=== PATIENT | female | born 1940 | race Caucasian/White ===

== ENCOUNTER 2017-10-13 13:52 | Emergency (ER) | payer MEDICARE, OTHER ==
[~2017-10-13] VITALS: Ht 157.5 cm; Wt 61.7 kg
[~2017-10-13 13:52] MED LIST: BALSALAZIDE DI750 MG PO; CARVEDILOL3.125 MG PO; COUMADIN5 MG PO; LASIX20 MG PO; LISINOPRIL2.5 MG PO; LOSARTAN POTASS25 MG PO; LOVENOX60 MG/0.6 SC; NORVASC5 MG PO; PANTOPRAZOLE SO40 MG PO; PAXIL20 MG PO; POTASSIUM CHLO20 ME1 PO; QUESTRAN PACKET4 GM PO; WARFARIN SODIUM5 MG PO
[2017-10-13] MEDS ORDERED: ONDANSETRON HCL 4 MG ORAL DISINTEGRATING TAB ONE (14:41)
[2017-10-13] MEDS ORDERED: ONDANSETRON HCL 4 MG ORAL DISINTEGRATING TAB PO ONE ×2 (14:45→17:30)
[2017-10-13 15:40] LABS: BASOPHILS % 0.2 % (0.0-1.0); HEMATOCRIT 37.7 % (34.2-44.1); HEMOGLOBIN 12.5 g/dL (12.0-16.0); LYMPHOCYTES # (AUTO) 0.7 (1.0-3.2); MEAN CORPUSCULAR HEMOGLOBIN 31.8 pg (28-32); MEAN CORPUSCULAR HGB CONC 33.2 g/dL (31-35); MEAN CORPUSCULAR VOLUME 95.9 fL (81-99); MONOCYTES % 0.6 % (4.4-11.3); NEUTROPHILS # (AUTO) 4.5 (2.1-6.9); NEUTROPHILS % 85.8 % (38.7-80.0); PLATELET COUNT 109 x10e3/uL (140-360); RED BLOOD COUNT 3.93 x10e6/uL (3.6-5.1); RED CELL DISTRIBUTION WIDTH 15.4 % (11.7-14.4)
--- NOTE | 2017-10-13 15:43 | Diagnostic Imaging Report ---
PROCEDURE: X-RAY LUMBAR SPINE, TWO VIEWS COMPARISON: Lumbar spine radiographs 06/02/2016 INDICATIONS: LOWER BACK PAIN FINDINGS: AP, lateral, and spot lateral radiographs of the lumbar spine. Five non-rib bearing lumbar vertebral bodies are identified. The bones are demineralized. New vertebroplasty cement within T11 and L2 compared to 06/02/2016. Vertebroplasty cement again seen within L3. Multilevel degenerative changes include disc space narrowing, subchondral sclerosis, and marginal osteophyte formation. Stable T12 vertebral body mild superior endplate compression. No spondylolisthesis. IVC filter and multiple vascular stents overlie the right abdomen suggesting venous stents within the IVC and common iliac veins. Stable stent overlies the expected left common iliac artery. Cholecystectomy clips. CONCLUSION: No acute abnormality. Vertebroplasty of T11, L2, and L3. Demineralization and degenerative changes. Dictated by: Lamberto Villanueva M.D. on 10/13/2017 at 15:44 Electronically approved by: Lamberto Villanueva M.D. on 10/13/2017 at 15:44
[2017-10-13 16:01] LABS: ALBUMIN 3.5 g/dL (3.5-5.0); ALBUMIN/GLOBULIN RATIO 0.9 (0.8-2.0); ANION GAP 15.1 mmol/L (8-16); CALCIUM 10.3 mg/dL (8.4-10.2); CREATININE, SERUM 1.06 mg/dL (0.57-1.11); POTASSIUM 4.1 mmol/L (3.5-5.1)
--- NOTE | 2017-10-13 17:07 | Diagnostic Imaging Report ---
History: 77-year-old female with back pain after epidural steroid injection earlier today. Comparison studies: CT pelvis, 04/07/2016 Technique: Sagittal T1, T2 and IR, coronal T2, axial T2 with and without fat sat and axial spin density oblique Intravenous contrast: None Findings: Number of lumbar vertebral bodies: 5 . Soft tissues: Extensive metallic susceptibility artifact seen in the prevertebral soft tissues, particularly at the level of L3, presumably due to vascular stents. Paraspinal muscles: Moderate diffuse fatty atrophy from level L4-S1 . Lower thoracic cord: Anterior displacement of the lower thoracic spinal cord is seen from T10-T11 to T12-L1, with dorsal effacement is seen at the T11 level. There is suggestion of a dorsal extra-axial, possible subdural collection measuring approximately 5.1 x 0.7 x 1.3 cm (series 2 image 9) which is isointense to the spinal cord on T1 and mildly hyperintense on T2. It is not the same intensity as fat or CSF. There is questionable tethering from the dorsal aspect of the cord to the posterior dura (series 2 image 8). The tip of the conus is at L1. Cauda equina:No masses. No arachnoiditis . Vertebrae: Multiple chronic compression fractures seen throughout the lumbar spine, with associated vertebroplasty changes at T11, L2, and L3. Chronic superior endplate compression deformity at T12, with approximate 20% loss of height. Degenerative changes: L1-L2 Symmetric disc bulge causes mild canal stenosis and severe right foraminal stenosis. L2-L3: Mildly degenerated disc Symmetric disc bulge and facet arthropathy cause mild canal stenosis without significant foraminal stenosis. L3-L4: Moderately degenerated disc. Symmetric disc bulge and facet arthropathy cause mild canal stenosis. Mild left foraminal stenosis. L4-L5: Moderately degenerated disc Disc bulge asymmetric to the right and facet arthropathy and ligamentum flavum buckling cause mild canal stenosis. Moderate right and mild left foraminal stenosis. L5-S1: Moderately degenerated disc. Symmetric disc bulge without canal stenosis. Mild bilateral foraminal stenosis. Partially visualized sacrum: No significant abnormality . IMPRESSION: Exam is limited by artifact from vascular stents. 1. 5 cm dorsal extra-axial, possible subdural collection causing anterior displacement of the lower thoracic cord from T10-T11 through T12-L1. This is nonspecific, and may represent a hematoma, abscess, arachnoid cyst, or possibly iatrogenic fluid. No spinal cord signal changes. Further evaluation with MRI with contrast may be performed, as clinically indicated. 2. Multiple chronic compression fractures status post vertebral plasty at T11, L2 and L3. Chronic superior endplate compression deformity at T12, with approximate 20% loss of height. No acute compression fractures identified. 3. Suboptimal evaluation due to metallic susceptibility artifact. 4. Lumbar spondylosis as detailed above. Findings discussed with nurse practitioner Jaycee at 5:00 PM 10/13/2017 via telephone. A preliminary report was given by Neuroradiology fellow Dr. Kelly at 5:06 PM on 10/13/2017. I have reviewed the study and agree with the findings in the preliminary report. Signed by: Dr. Annabel Hubbard M.D. on 10/13/2017 10:16 PM
[2017-10-13] MEDS ORDERED: MORPHINE SULFATE 2 MG/ML SYR IV STA (17:23)
[2017-10-13] MEDS ORDERED: PHYTONADIONE 10 MG/ML AMP PO ONE (17:30)
[2017-10-13 18:00] LABS: INR 1.06
[2017-10-13 18:01] LABS: PARTIAL THROMBOPLASTIN TIME 27.3 seconds (23.8-35.5)
[2017-10-13 18:45] LABS: BILIRUBIN,URINE NEGATIVE (NEGATIVE); CLARITY,URINE CLEAR (CLEAR); COLOR,URINE YELLOW (YELLOW); KETONES,URINE TRACE (NEGATIVE); LEUKOCYTE ESTERASE ,URINE NEGATIVE (NEGATIVE); NITRITE,URINE NEGATIVE (NEGATIVE); PROTEIN,URINE DIPSTICK 1+ (NEGATIVE); URINE UROBILINOGEN 0.2 mg/dL (0.2 - 1)
[2017-10-13] MEDS ORDERED: CLONIDINE HCL 0.2 MG TAB PO ONE (18:45)
[2017-10-13 18:59] LABS: WBC,URINE (MAN) 0-5 /HPF (0-5)
[2017-10-13 19:00] LABS: BACTERIA,URINE RARE /HPF; EPITHELIAL CELLS,URINE RARE /LPF; MUCUS,URINE FEW (RARE)
== END 2017-10-13 21:08 | disposition other institution (70) ==
LOC: ER 14:54
DX: S24.133A Anterior cord syndrome at T7-T10 level of thoracic spinal cord, initial encounter (principal); R11.0 Nausea; I10 Essential (primary) hypertension; I25.10 Atherosclerotic heart disease of native coronary artery without angina pectoris; F32.9 Major depressive disorder, single episode, unspecified; I25.2 Old myocardial infarction; Z85.3 Personal history of malignant neoplasm of breast; Z86.718 Personal history of other venous thrombosis and embolism
CPT/HCPCS: 36415; 51700; 72100; 72148; 80053; 81001; 85025; 85610; 85730; 99285; J2270; J3430

== ENCOUNTER → 2017-10-30 | Outpatient (CLI) | payer MEDICARE ==
--- NOTE | 2017-10-31 09:45 | Diagnostic Imaging Report ---
History: Low back pain Comparison studies: MRI of the lumbar spine 10/13/2017 Technique: Sagittal T1, T2 and IR, coronal T2, axial T2 with and without fat sat and axial spin density oblique Intravenous contrast: None Findings: Number of lumbar vertebral bodies: 5 . Soft tissues: Again seen metallic susceptibility artifact seen in the prevertebral soft disc secondary to to vascular stents. Straightening and mild reversal of the lumbar lordosis centered at L2. Mild grade 1 anterolisthesis of L1 over L2. Paraspinal muscles: Moderate to severe diffuse fatty atrophy from level L4-S1 . Lower thoracic cord: Significantly decrease in size of the posterior epidural fluid collection at the lower thoracic spine spanning from T11 made level through L1 superior endplate with improved mass effect over the thecal sac, moderate at T11-T12. The conus ends at L1-L2 Cauda equina:No masses. No arachnoiditis . Vertebrae: Multiple chronic compression fractures seen throughout the lumbar spine, with associated vertebroplasty changes at T11, L2, and L3, unchanged. Chronic superior endplate compression deformity at T12, with approximate 20% loss of height, unchanged. Modic type I changes at L1-L2, unchanged Degenerative changes: L1-L2 Symmetric disc bulge causes mild canal stenosis and severe right foraminal stenosis, stable. L2-L3: Mildly degenerated disc Symmetric disc bulge and facet arthropathy cause mild canal stenosis without significant foraminal stenosis, stable. L3-L4: Moderately degenerated disc. Symmetric disc bulge and facet arthropathy cause mild canal stenosis. Mild left foraminal stenosis, stable. L4-L5: Moderately degenerated disc Disc bulge asymmetric to the right and facet arthropathy and ligamentum flavum buckling cause mild canal stenosis. Mild bilateral foraminal stenosis, stable. L5-S1: Moderately degenerated disc. Symmetric disc bulge without canal stenosis. Severe right and moderate left foraminal narrowing, stable. Partially visualized sacrum: No significant abnormality . IMPRESSION: 1. Decrease in size dorsal posterior heterogeneous epidural fluid collection T11 through L1 with improved thecal sac compression, moderate at T11-12, most consistent with evolving hematoma. 2. Stable multiple, chronic compression fractures with vertebroplasty changes. No acute compression fractures identified. 3. Stable degenerative changes of the lumbar spine as described above. Signed by: DR Willie Virgen M.D. on 10/31/2017 9:41 AM
== END ==
LOC: MRI 13:42
PROVIDERS: ATTEND Physical Medicine & Rehabilitation
DX: M54.5 Low back pain (principal); X58.XXXA Exposure to other specified factors, initial encounter
CPT/HCPCS: 72148

== ENCOUNTER → 2017-12-06 | Outpatient (CLI) | payer MEDICARE ==
--- NOTE | 2017-12-06 19:11 | Diagnostic Imaging Report ---
PROCEDURE:THORACIC SP 3V COMPARISON:Chest radiograph 12/14/2016 INDICATIONS:PAIN IN BACK FINDINGS: Osseous demineralization. Lower cervical fusion hardware without evidence of hardware fracture or loosening. Vertebroplasty changes of likely T11 and L2. Stable mild compression deformities of T9 and T12. Mild multilevel degenerative changes throughout the thoracic spine. Partially visualized metallic stent in the right upper quadrant. Surgical clips in the right upper quadrant. Visualized lungs and cardiomediastinal silhouette are unremarkable. CONCLUSION: No acute osseous abnormalities. Stable multiple vertebroplasties and compression deformities compared to 12/14/2016. Dictated by: Lamberto Villanueva M.D. on 12/06/2017 at 19:15 Electronically approved by: Lamberto Villanueva M.D. on 12/06/2017 at 19:15
== END ==
LOC: RAD 18:02 → EDSTATUS 12-15 16:45
PROVIDERS: ATTEND Internal Medicine Cardiovascular Disease
DX: M54.6 Pain in thoracic spine (principal)
CPT/HCPCS: 72072

== ENCOUNTER 2019-03-12 15:01 | Inpatient (IN) | payer MEDICARE, OTHER ==
[~2019-03-12] VITALS: Ht 154.9 cm; Wt 66.8 kg
--- OUTSIDE RECORDS SUMMARY | 2019-03-12 15:53 | XMS REPORT ---
[facility] Address Unknown Phone Unavailable Care Team Providers Care Production Assembler Name Role Phone HUGO WHEELER Unavailable Unavailable AMANDA CEBALLOS Unavailable Unavailable LESLYE CHANDLER Unavailable Unavailable MONROE MCPHERSON Unavailable Unavailable Payers Payer Name Policy Type Policy Number Effective Date Expiration Date Problems This patient has no known problems. Allergies, Adverse Reactions, Alerts Allergy Name Allergy Type Status Severity Reaction(s) Onset Date Inactive Date Treating Clinician Comments prochlorperazine edisylate DA Active 2017-06-02 00:00:00 prochlorperazine maleate DA Active 2017-06-02 00:00:00 iodine DA Active 2017-06-02 00:00:00 prochlorperazine DA Active MA 2017-06-02 00:00:00 amoxicillin DA Active MA 2017-06-02 00:00:00 INTERNAL IODINE DA Active MA 2013-01-11 00:00:00 Medications This patient has no known medications. Results Test Description Test Time Test Comments Text Results Atomic Results Result Comments PROTHROMBIN TIME 2019-01-15 13:24:00 PROTHROMBIN TIME PATIENT (test code=PTP) 18.8 seconds 9.0-14.0 INTERNATIONAL NORMAL RATIO (test code=INR) 1.6 0.8-1.2 The therapeutic range for oral anticoagulant therapy formost indications is an international normalized ratio (INR)of between 2.0 and 3.0. The recommended therapeutic INRrange for various clinical situations is listed below: Clinical Situation INR range Pulmonary e mbolism treatment (2.0-3.0)Venous thrombosis treatmentVenous thrombosis prophylaxis (high risk surgery)Prevention of systemic embolism from: Acute myocardial infarction Valvular heart disease Atrial fibrillation Mechanical prosthetic heart valves (2.5-3.5) PROTHROMBIN [id number] 14:24:00* Test Item Value Reference Range Comments PROTHROMBIN TIME PATIENT (test code=PTP) 16.9 seconds 9.0-14.0 INTERNATIONAL NORMAL RATIO (test code=INR) 1.4 0.8-1.2 The therapeutic range for oral anticoagulant therapy formost indications is an international normalized ratio (INR)of between 2.0 and 3.0. The recommended therapeutic INRrange for various clinical situations is listed below: Clinical Situation INR range Pulmonary e mbolism treatment (2.0-3.0)Venous thrombosis treatmentVenous thrombosis prophylaxis (high risk surgery)Prevention of systemic embolism from: Acute myocardial infarction Valvular heart disease Atrial fibrillation Mechanical prosthetic heart valves (2.5-3.5) PROTHROMBIN [id number] 13:40:00* Test Item Value Reference Range Comments PROTHROMBIN TIME PATIENT (test code=PTP) 43.1 seconds 9.0-14.0 INTERNATIONAL NORMAL RATIO (test code=INR) 3.7 0.8-1.2 The therapeutic range for oral anticoagulant therapy formost indications is an international normalized ratio (INR)of between 2.0 and 3.0. The recommended therapeutic INRrange for various clinical situations is listed below: Clinical Situation INR range Pulmonary e mbolism treatment (2.0-3.0)Venous thrombosis treatmentVenous thrombosis prophylaxis (high risk surgery)Prevention of systemic embolism from: Acute myocardial infarction Valvular heart disease Atrial fibrillation Mechanical prosthetic heart valves (2.5-3.5) URINALYSIS [id number] 23:56:00* Test Item Value Reference Range Comments UA COLOR (test code=COLU) LIGHT YELLOW YELLOW UA APPEARANCE (test code=APPU) CLEAR CLEAR UA GLUCOSE DIPSTICK (test code=DGLUU) NEGATIVE mg/dL NEGATIVE UA BILIRUBIN DIPSTICK (test code=BILU) NEGATIVE mg/dL NEGATIVE UA KETONE DIPSTICK (test code=KETU) Negative mg/dL NEGATIVE UA SPECIFIC GRAVITY (test code=SGU) 1.010 1.001-1.035 UA BLOOD DIPSTICK (test code=URSULA) Negative NEGATIVE UA PH DIPSTICK (test code=STACY) 6.0 5.0-8.0 UA PROTEIN DIPSTICK (test code=PROU) Negative mg/dL NEGATIVE UA UROBILINIOGEN DIPSTICK (test code=URO) NEGATIVE mg/dL NEGATIVE UA NITRITE DIPSTICK (test code=DORETHA) NEGATIVE NEGATIVE UA LEUKOCYTE ESTERASE W REFLEX (test code=LEUUR) TRACE NEGATIVE UA WBC (test code=WBCU) 0-5 #/HPF 0-5 UA RBC (test code=RBCU) 0-2 #/HPF 0-5 UA EPITHELIAL CELLS (test code=EPIU) FEW per HPF FEW UA MUCUS (test code=MUCU) FEW #/LPF FEW Urine Source? Clean CatchURINALYSIS [id number] 23:44:00* Test Item Value Reference Range Comments UA COLOR (test code=COLU) LIGHT YELLOW YELLOW UA APPEARANCE (test code=APPU) CLEAR CLEAR UA GLUCOSE DIPSTICK (test code=DGLUU) NEGATIVE mg/dL NEGATIVE UA BILIRUBIN DIPSTICK (test code=BILU) NEGATIVE mg/dL NEGATIVE UA KETONE DIPSTICK (test code=KETU) Negative mg/dL NEGATIVE UA SPECIFIC GRAVITY (test code=SGU) 1.010 1.001-1.035 UA BLOOD DIPSTICK (test code=URSULA) Negative NEGATIVE UA PH DIPSTICK (test code=STACY) 6.0 5.0-8.0 UA PROTEIN DIPSTICK (test code=PROU) Negative mg/dL NEGATIVE UA UROBILINIOGEN DIPSTICK (test code=URO) NEGATIVE mg/dL NEGATIVE UA NITRITE DIPSTICK (test code=DORETHA) NEGATIVE NEGATIVE UA LEUKOCYTE ESTERASE W REFLEX (test code=LEUUR) NEGATIVE UA WBC (test code=WBCU) per HPF 0-5 Urine Source? Clean CatchPROCALCITONIN (PCT)2018-08-29 23:04:00* Test Item Value Reference Range Comments PROCALCITONIN (PCT) (test code=PROCAL) < 0.05 ng/ml Concentration Interpretation (ng/mL) <0.51 Sepsis is not likely. Local bacterial infection is possible. (LOW RISK for progression to Sepsis) 0.51 - 2.00 Sepsis is possible, but other conditions are known to elevate PCT as well. (MODERATE RISK for progression to Sepsis) > 2.00 Sepsis is likely, unless other causes are known. (HIGH RISK for progression to Severe Sepsis or Septic Shock) 10.00 High likelihood of Severe Sepsis or Septic or higher Shock. *Increased PCT levels may not always be related to systemic bacterial infection.*Low PCT levels do not automatically exclude the presence of bacterial infection.*All results should be interpreted taking into account the patients history. B-TYPE NATRIURETIC [id number] 22:56:00* Test Item Value Reference Range Comments B-TYPE NATRIURETIC PEPTIDE (test code=BNP) 189.70 pgram/mL 0-100 LACTIC [id number] 22:42:00* Test Item Value Reference Range Comments LACTIC ACID (test code=LACT) 0.8 mmol/L 0.4-1.9 BASIC METABOLIC [id number] 22:42:00* Test Item Value Reference Range Comments SODIUM (test code=NA) 140 mmol/L 136-145 POTASSIUM (test code=K) 3.8 mmol/L 3.5-5.1 CHLORIDE (test code=CL) 108.0 mmol/L 98-107 CARBON DIOXIDE (test code=CO2) 25.0 mmol/L 21-32 ANION GAP (test code=GAP) 10.8 10-20 GLUCOSE (test code=GLU) 109 mg/dL 74-106 BLOOD UREA NITROGEN (test code=BUN) 14 mg/dL 7-18 GLOMERULAR FILTRATION RATE (test code=GFR) 60 mL/min >=60 Estimated GFR by using Modified MDRD formula.Chronic kidney disease is defined as either kidney damageor GFR <60 mL/min/1.73 m2 for >3 months. CREATININE (test code=CREAT) 0.90 mg/dL 0.55-1.02 Note change in reference range due to change in reagent. BUN/CREATININE RATIO (test code=BUN/CREA) 15.6 10-20 CALCIUM (test code=CA) 9.1 mg/dL 8.5-10.1 HEPATIC FUNCTION [id number] 22:42:00* Test Item Value Reference Range Comments TOTAL PROTEIN (test code=PROT) 6.7 gram/dL 6.4-8.2 ALBUMIN (test code=ALB) 3.2 g/dL 3.4-5.0 GLOBULIN (test code=GLOB) 3.5 gram/dL 2.7-4.2 ALBUMIN/GLOBULIN RATIO (test code=A/G) 0.9 0.75-1.50 BILIRUBIN TOTAL (test code=BILT) 0.60 mg/dL 0.0-1.0 BILIRUBIN DIRECT (test code=BILD) 0.13 mg/dL 0.0-0.20 SGOT/AST (test code=AST) 47 IUnit/L 15-37 SGPT/ALT (test code=ALT) 29 IUnit/L 12-78 ALKALINE PHOSPHATASE TOTAL (test code=ALKP) 59 IUnit/L 45-117 Note change in reference range due to change in reagent. [id number] 22:42:00* Test Item Value Reference Range Comments LIPASE (test code=LIP) 113 U/L 73.0-393.0 [id number] 22:42:00* Test Item Value Reference Range Comments TROPONIN-I (test code=TROPI) <0.015 ng/mL 0-0.045 BASIC METABOLIC [id number] 22:32:00* Test Item Value Reference Range Comments SODIUM (test code=NA) 140 mmol/L 136-145 POTASSIUM (test code=K) 3.8 mmol/L 3.5-5.1 CHLORIDE (test code=CL) 108.0 mmol/L 98-107 CARBON DIOXIDE (test code=CO2) mmol/L 21-32 ANION GAP (test code=GAP) 10-20 GLUCOSE (test code=GLU) mg/dL 74-106 BLOOD UREA NITROGEN (test code=BUN) mg/dL 7-18 GLOMERULAR FILTRATION RATE (test code=GFR) mL/min >=60 CREATININE (test code=CREAT) mg/dL 0.55-1.02 BUN/CREATININE RATIO (test code=BUN/CREA) 10-20 CALCIUM (test code=CA) mg/dL 8.5-10.1 HEPATIC FUNCTION [id number] 22:32:00* Test Item Value Reference Range Comments TOTAL PROTEIN (test code=PROT) gram/dL 6.4-8.2 ALBUMIN (test code=ALB) g/dL 3.4-5.0 GLOBULIN (test code=GLOB) gram/dL 2.7-4.2 ALBUMIN/GLOBULIN RATIO (test code=A/G) 0.75-1.50 BILIRUBIN TOTAL (test code=BILT) mg/dL 0.0-1.0 BILIRUBIN DIRECT (test code=BILD) mg/dL 0.0-0.20 SGOT/AST (test code=AST) IUnit/L 15-37 SGPT/ALT (test code=ALT) IUnit/L 12-78 ALKALINE PHOSPHATASE TOTAL (test code=ALKP) IUnit/L 45-117 [id number] 22:32:00* Test Item Value Reference Range Comments LIPASE (test code=LIP) U/L 73.0-393.0 [id number] 22:32:00* Test Item Value Reference Range Comments TROPONIN-I (test code=TROPI) ng/mL 0-0.045 PROTHROMBIN [id number] 22:23:00* Test Item Value Reference Range Comments PROTHROMBIN TIME PATIENT (test code=PTP) 23.3 seconds 9.0-14.0 INTERNATIONAL NORMAL RATIO (test code=INR) 2.0 0.8-1.2 The therapeutic range for oral anticoagulant therapy formost indications is an international normalized ratio (INR)of between 2.0 and 3.0. The recommended therapeutic INRrange for various clinical situations is listed below: Clinical Situation INR range Pulmonary e mbolism treatment (2.0-3.0)Venous thrombosis treatmentVenous thrombosis prophylaxis (high risk surgery)Prevention of systemic embolism from: Acute myocardial infarction Valvular heart disease Atrial fibrillation Mechanical prosthetic heart valves (2.5-3.5) IS PATIENT ON ANTICOAGULANTS? NTHROMBOPLASTIN TIME [id number] 22:23:00* Test Item Value Reference Range Comments THROMBOPLASTIN TIME PARTIAL (test code=PTT) 37.6 seconds 25.0-36.5 IS PATIENT ON ANTICOAGULANTS? N- XR CHEST 1 [id number] 22:14:00 FAX: Hugo Cabezas MD [phone] [place]: B St: PRE FAX: Pamela Saul MD [phone] Name: ARJUN CRAIG [facility] : 1940 Age/S: 78/F Donny Mcknight audi Unit #: [id number] Loc: [place] [address] Phys: Pamela Saul MD Acct: [id number] Dis Date: Status: PRE ER PHONE #: [phone] Exam Date: 08/29/20182206 FAX #: [phone] Reason: CODE SEPSIS EXAMS: CPT CODE: [id number] XR CHEST 1 V 08933 EXAM: Chest x-ray, one view; INFORMATION: Code sepsis, shortness of breath; no FINDINGS: Mild basilar atelectatic changes on the left. Otherwise, lungs are clear; no infiltrates, edema; no obvious effusions. The heart is slightly enlarged. Slightly to rtuous aorta. IMPRESSION: 1. Mild cardiomegaly. 2. Mild left basilar atelectatic changes. 3. No acute cardiothoracic abnormalities. 4. No major change compared with a study from May 122017. Anterior fusion of the mid and lower cervical spine. at 2214 Reported and sig raul by: Tashi Nassar M.D. CC: Hugo Wheeler M.D.; Pamela Shepard MD Technologist: Salas Viramontes RT(R Trnscrd Date/Time/By: 08/29/2018 (2213) : By: MonicaW Orig Print D/T: S: 08/29/2018 (7967) PAGE 1 Signed Report CBC W/AUTO DIFF 2018-08-29 22:11:00* Test Item Value Reference Range Comments WHITE BLOOD CELL (test code=WBC) 12.1 K/mm3 4.5-12.5 RED BLOOD CELL (test code=RBC) 4.28 mill/mm3 3.7-5.2 HEMOGLOBIN (test code=HGB) 12.8 gram/dL 11.5-15.5 HEMATOCRIT (test code=HCT) 41.5 % 36.0-46.0 MEAN CELL VOLUME (test code=MCV) 97.0 fL 80-98 MEAN CELL HGB (test code=MCH) 29.9 picogram 27.0-33.0 MEAN CELL HGB CONCETRATION (test code=MCHC) 30.8 gram/dL 33.0-36.0 RED CELL DISTRIBUTION WIDTH (test code=RDW) 14.3 % 11.6-16.2 RED CELL DISTRIBUTION WIDTH SD (test code=RDW-SD) 50.4 fL 37.0-51.0 PLATELET COUNT (test code=PLT) 120 K/mm3 150-450 MEAN PLATELET VOLUME (test code=MPV) 12.1 fL 6.7-11.0 NEUTROPHIL % (test code=NT%) 75.5 % 39.0-69.0 IMMATURE GRANULOCYTE % (test code=IG%) 0.6 % 0.0-5.0 LYMPHOCYTE % (test code=LY%) 12.8 % 25.0-55.0 MONOCYTE % (test code=MO%) 10.1 % 0.0-10.0 EOSINOPHIL % (test code=EO%) 0.8 % 0.0-5.0 BASOPHIL % (test code=BA%) 0.2 % 0.0-1.0 NUCLEATED RBC % (test code=NRBC%) 0.0 % 0-0 NEUTROPHIL # (test code=NT#) 9.11 K/mm3 1.8-7.7 IMMATURE GRANULOCYTE # (test code=IG#) 0.07 x10 3/uL 0-0.03 LYMPHOCYTE # (test code=LY#) 1.54 K/mm3 1.0-5.0 MONOCYTE # (test code=MO#) 1.22 K/mm3 0-0.8 EOSINOPHIL # (test code=EO#) 0.10 K/mm3 0.0-0.5 BASOPHIL # (test code=BA#) 0.02 K/mm3 0.0-0.2 NUCLEATED RBC # (test code=NRBC#) 0.00 K/mm3 0.0-0.1 CBC W/AUTO [id number] 22:07:00* Test Item Value Reference Range Comments WHITE BLOOD CELL (test code=WBC) K/mm3 4.5-12.5 RED BLOOD CELL (test code=RBC) mill/mm3 3.7-5.2 HEMOGLOBIN (test code=HGB) 12.8 gram/dL 11.5-15.5 HEMATOCRIT (test code=HCT) 41.5 % 36.0-46.0 MEAN CELL VOLUME (test code=MCV) fL 80-98 MEAN CELL HGB (test code=MCH) picogram 27.0-33.0 MEAN CELL HGB CONCETRATION (test code=MCHC) gram/dL 33.0-36.0 RED CELL DISTRIBUTION WIDTH (test code=RDW) % 11.6-16.2 RED CELL DISTRIBUTION WIDTH SD (test code=RDW-SD) fL 37.0-51.0 PLATELET COUNT (test code=PLT) K/mm3 150-450 MEAN PLATELET VOLUME (test code=MPV) fL 6.7-11.0 NEUTROPHIL % (test code=NT%) % 39.0-69.0 IMMATURE GRANULOCYTE % (test code=IG%) % 0.0-5.0 LYMPHOCYTE % (test code=LY%) % 25.0-55.0 MONOCYTE % (test code=MO%) % 0.0-10.0 EOSINOPHIL % (test code=EO%) % 0.0-5.0 BASOPHIL % (test code=BA%) % 0.0-1.0 NEUTROPHIL # (test code=NT#) K/mm3 1.8-7.7 LYMPHOCYTE # (test code=LY#) K/mm3 1.0-5.0 MONOCYTE # (test code=MO#) K/mm3 0-0.8 EOSINOPHIL # (test code=EO#) K/mm3 0.0-0.5 BASOPHIL # (test code=BA#) K/mm3 0.0-0.2 POC LACTIC [id number] 22:00:00* Test Item Value Reference Range Comments POC LACTIC ACID (test code=POCLAC) 1.05 MMOL/L 0.4-2.2 - XR SHOULDER 2 + V [id number] 14:31:00 FAX: Hugo Cabezas MD [phone] [place]: O St: REG Name: ARJUN ATKINS [facility] : [birth year] Age/S: 78/F Donny Alonzo Unit #: [id number] Loc: [place] [address] Phys: Hugo Wheeler MD Acct: [id number] Dis Date: Status: REG RCR PHONE #: [phone] Exam Date: 08/20/2018 1313 FAX #: [phone] Reason: M79.601 EXAMS: CPT CODE: [id number] XR SHOULDER 2 + [place] [id number] HISTORY: M79.601 COM PARISON: None available. 3 views of the right shoulder: No acute fracture or dislocation. Narrowed shoulder and AC joints. Vis ualized lungs are clear. Cervical fusion in the lower neck. Scapula and gl enoid are normal. IMPRESSION: No acute fractur e or dislocation. DJD. at 1431 Reported and signed by: Adolph Coughlin M.D. CC: Hugo Wheeler M.D. Technologist: RT Sybil(Arron) Trnscrd Date/Time/By: 08/20/2018 (5705) : By: [email or web address] Orig Print D /T: S: 08/20/2018 (0720) PAGE 1 S igned Report PROTHROMBIN [id number] 13:57:00* Test Item Value Reference Range Comments PROTHROMBIN TIME PATIENT (test code=PTP) 17.6 seconds 9.0-14.0 INTERNATIONAL NORMAL RATIO (test code=INR) 1.4 0.8-1.2 The therapeutic range for oral anticoagulant therapy formost indications is an international normalized ratio (INR)of between 2.0 and 3.0. The recommended therapeutic INRrange for various clinical situations is listed below: Clinical Situation INR range Pulmonary e mbolism treatment (2.0-3.0)Venous thrombosis treatmentVenous thrombosis prophylaxis (high risk surgery)Prevention of systemic embolism from: Acute myocardial infarction Valvular heart disease Atrial fibrillation Mechanical prosthetic heart valves (2.5-3.5) BREAST ULTRASOUND [id number] 17:12:35 - DIAG MAMM BILATERAL ROSA CAD DIGITALBILATERAL DIGITAL DIAGNOSTIC MAMMOGRAM 3D/2D WITH CAD: 07/12/2018CLINICAL: 12 Month follow-up. Digital breast tomosynthesis was performed in addition to routine CC and MLO views. Current mammographic images were evaluated by either a [employer] M-Vu or a Rapt ImageChecker CAD (computer aided detection system). Comparison is made to exams dated 07/10/2017 mammogram, 04/26/2016 mammogram, and 08/12/2014 mammogram - [facility]. The tissue of both breasts is heterogeneously dense. This may lower the sensitivity of mammography. There are benign vascular calcifications in both breasts. There also are post operative findings and biopsy clips in the left breast. No suspicious mass, architectural distortion, malignant type calcification, or lymph node abnormality detected. INCOMPLETE ASSESSMENT: ADDITIONAL IMAGING EVALUATION RECOMMENDEDUltrasound pending for additional evaluation. Resume annual s creening mammography in one year. - BREAST ULTRASOUND BILATERALULTRASOUND OF SAMMI TH BREASTS AND BOTH AXILLA: 07/12/2018Comparison is made to exams dated 8 mammogram, 04/26/2016 mammogram, and 08/12/2014 mammogram - [facility]. Real-time ultrasound of both breasts and both axilla was performed. Th ere is a benign 4 cm area of fat necrosis in the right breast at 1 o'clock. No abnormalities were seen sonographically in the left breast or either axilla. IM PRESSION: BENIGN There is no sonographic evidence of malignancy. Patient has be en informed that she has areas of dense breast tissue that could make it difficu lt to find a small cancer. A screening mammogram and supplemental ultrasound for dense breast tissue is recommended in 1 year.Olinda Watts M.D. dm/: 17:12:35 Unemployment Inspector: Juliana Holt , [facility] [place] sent: BIRADS 1-2 Combo FU Letter Mammogram BI-RADS: 0 Indeterm inate Ultrasound BI-RADS: 2 BenignDIAG MAMM BILATERAL ROSA CAD [id number] 17:12:35 - DIAG MAMM BILATERAL ROSA CAD DIGITALBILATERAL DIGITAL DIAGNOSTIC MAMMOGRAM 3D/2D WITH CAD: 07/12/2018CLINICAL: 12 Month follow-up. Digital breast tomosynthesis was performed in addition to routine CC and MLO views. Current mammographic images were evaluated by either a [employer] M-Vu or a Rapt ImageChecker CAD (computer aided detection system). Comparison is made to exams dated 07/10/2017 mammogram, 04/26/2016 mammogram, and 08/12/2014 mammogram - [facility] The tissue of both breasts is heterogeneously dense. This may lower the sensitivity of mammography. There are benign vascular calcifications in both breasts. There also are post operative findings and biopsy clips in the left breast. No suspicious mass, architectural distortion, malignant type calcification, or lymph node abnormality detected. INCOMPLETE ASSESSMENT: ADDITIONAL IMAGING EVALUATION RECOMMENDEDUltrasound pending for additional evaluation. Resume annual screening mammography in one year. - BREAST ULTRASOUND BILATERALULTRASOUND OF BOTH BREASTS AND BOTH AXILLA: 07/12/2018Comparison is made to exams dated 07/10/2017 mammogram, 04/26/2016 mammogram, and 08/12/2014 mammogram - [facility]-. Real-time ultrasound of both breasts and both axilla was performed. There is a benign 4 cm area of fat necrosis in the right breast at 1 o'clock. No abnormalities were seen sonographically in the left breast or either axilla. IMPRESSION: BENIGN There is no sonographic evidence of malignancy. Patient has been informed that she has areas of dense breast tissue that could make it difficult to find a small cancer. A screening mammogram and supplemental ultrasound for dense breast tissue is recommended in 1 year.Olinda Watts M.D. dm/:07/12/2018 17:12:35 Unemployment Inspector: Juliana Holt [place], [facility]- [place] sent: BIRADS 1-2 Combo FU Letter Mammogram BI-RADS: 0 Indeterminate Ultrasound BI-RADS: 2 BenignTHORACIC SP [id number] 19:15:00 [place] [address] Patient Name: ARJUN CRAIG MR #: [id number] : 1940 Age/Sex: 77/F Req #: [id number] Adm Physician: Ordered by: HUGO WHEELER MD Report #: [id number] Location: [facility] Room/Bed: Procedure: [id number] DX/THORACIC SP 3V Exam Date: 12/06/17 Exam Time: 1835 REPORT STATUS: Signed PROCEDURE: THORACIC SP 3V COMPARISON: Chest radiograph 12/14/2016 INDICATIONS: PAIN IN BACK FINDINGS: Osseous demineralization. L ower cervical fusion hardware without evidence of hardware fracture or loosen ing. Vertebroplasty changes of likely T11 and L2. Stable mild compression de formities of T9 and T12. Mild multilevel degenerative changes throughout the thoracic spine. Partially visualized metallic stent in the right upper qu adrant. Surgical clips in the right upper quadrant. Visualized lungs a nd cardiomediastinal silhouette are unremarkable. CONCLUSION: No acu te osseous abnormalities. Stable multiple vertebroplasties and compression de formities compared to 12/14/2016. Dictated by: Lamberto Gr M.D. on at 19:15 Electronically approved by: Lamberto Gr M.D. on 11/11 at 19:15 Dictated By: LAMBERTO GR MD 14 Transcribed By: VITA on 12/06/171914 COPY TO: HUGO WHEELER MD POCT-GLUCOSE [id number] 12:28:00* Test Item Value Reference Range Comments POC-GLUCOSE METER (BEAKER) (test lncu=7486) 110 mg/dL 70-110 TESTED AT [facility] [address] [facility] [address] POCT-GLUCOSE [id number] 08:10:00* Test Item Value Reference Range Comments POC-GLUCOSE METER (BEAKER) (test xexs=5273) 115 mg/dL 70-110 TESTED AT [facility] [address] [facility] [address] BASIC METABOLIC [id number] 05:12:00* Test Item Value Reference Range Comments SODIUM (BEAKER) (test yxlt=019) 139 meq/L 136-145 POTASSIUM (BEAKER) (test tzsi=779) 3.7 meq/L 3.5-5.1 Specimen slightly hemolyzed CHLORIDE (BEAKER) (test urou=462) 108 meq/L 98-107 CO2 (BEAKER) (test prwz=763) 22 meq/L 22-29 BLOOD UREA NITROGEN (BEAKER) (test xgop=284) 30 mg/dL 7-21 CREATININE (BEAKER) (test enoi=513) 0.80 mg/dL 0.57-1.25 Specimen slightly hemolyzed GLUCOSE RANDOM (BEAKER) (test esvp=579) 109 mg/dL 70-105 CALCIUM (BEAKER) (test vuyv=117) 8.6 mg/dL 8.4-10.2 EGFR (BEAKER) (test dyke=1092) 69 mL/min/1.73 sq m ESTIMATED GFR IS NOT ACCURATE CREATININE CLEARANCE IN PREDICTING GLOMERULAR FILTRATION RATE. ESTIMATED GFR IS NOT APPLICABLE FOR DIALYSIS PATIENTS. CBC W/PLT COUNT & AUTO [id number] 04:44:00* Test Item Value Reference Range Comments WHITE BLOOD CELL COUNT (BEAKER) (test jsyv=150) 7.7 K/ L 3.5-10.5 RED BLOOD CELL COUNT (BEAKER) (test tqsn=345) 3.50 M/ L 3.93-5.22 HEMOGLOBIN (BEAKER) (test rzzm=830) 11.1 GM/DL 11.2-15.7 HEMATOCRIT (BEAKER) (test untl=935) 34.7 % 34.1-44.9 MEAN CORPUSCULAR VOLUME (BEAKER) (test vxjq=987) 99.1 fL 79.4-94.8 MEAN CORPUSCULAR HEMOGLOBIN (BEAKER) (test cgro=684) 31.7 pg 25.6-32.2 MEAN CORPUSCULAR HEMOGLOBIN CONC (BEAKER) (test oiiu=787) 32.0 GM/DL 32.2-35.5 RED CELL DISTRIBUTION WIDTH (BEAKER) (test krfg=164) 15.5 % 11.7-14.4 PLATELET COUNT (BEAKER) (test binf=112) 148 K/CU MM 150-450 MEAN PLATELET VOLUME (BEAKER) (test nuxz=998) 12.4 fL 9.4-12.3 NUCLEATED RED BLOOD CELLS (BEAKER) (test rvar=274) 0 /100 WBC 0-0 NEUTROPHILS RELATIVE PERCENT (BEAKER) (test cpix=858) 77 % LYMPHOCYTES RELATIVE PERCENT (BEAKER) (test ndig=247) 13 % MONOCYTES RELATIVE PERCENT (BEAKER) (test jslx=045) 9 % EOSINOPHILS RELATIVE PERCENT (BEAKER) (test sonw=426) 0 % BASOPHILS RELATIVE PERCENT (BEAKER) (test ctrq=263) 0 % NEUTROPHILS ABSOLUTE COUNT (BEAKER) (test pnfy=639) 5.95 K/ L 1.56-6.13 LYMPHOCYTES ABSOLUTE COUNT (BEAKER) (test jgho=256) 1.03 K/ L 1.18-3.74 MONOCYTES ABSOLUTE COUNT (BEAKER) (test hhyh=657) 0.67 K/ L 0.24-0.36 EOSINOPHILS ABSOLUTE COUNT (BEAKER) (test fsma=741) 0.01 K/ L 0.04-0.36 BASOPHILS ABSOLUTE COUNT (BEAKER) (test askq=076) 0.00 K/ L 0.01-0.08 IMMATURE GRANULOCYTES-RELATIVE PERCENT (BEAKER) (test mtlt=1528) 0 % 0-1 URINE IFIQARS2015-16-07 14:23:00* Test Item Value Reference Range Comments CULTURE (BEAKER) (test uhqb=0400) ESCHERICHIA COLI >100,000 col/mL Escherichia coli Amikacin (test code=1) Ampicillin + Sulbactam (test code=6) Aztreonam (test code=32) Cefepime (test code=51) Cefoxitin (test code=68) Ceftazidime (test code=27) Ceftriaxone (test code=52) Ertapenem (test code=38) Gentamicin (test code=18) Levofloxacin (test code=22) Meropenem (test code=34) Nitrofurantoin (test code=23) Piperacillin + Tazobactam (test code=29) Tetracycline (test code=2) Tobramycin (test code=25) Trimethoprim + Sulfamethoxazole (test code=47) B-TYPE NATRIURETIC FACTOR (BNP)2017-10-16 12:54:00* Test Item Value Reference Range Comments B-TYPE NATRIURETIC PEPTIDE (BEAKER) (test wpbq=356) 304 pg/mL 0-100 RAD, ABDOMEN/KUB, 1 VIEW [id number] 10:07:00Reason for exam:->Check if patient has IVC filter in the RUQ pleaseShould this be performed at the bedside?->Yes FINAL REPORT Chest one view AP and abdomen two views supi ne 10/16/2017 10:06 AM CLINICAL INDICATION: rales and dyspnea/fatigue COMPARISON: None available IMPRESSION: There is bibasilar atelectasis with trace bilateral p leural effusions. Cardiomediastinal contours are within normal limits. The centr al pulmonary vasculature is not engorged. There is no radiographic evidence for bowel obstruction. There is no remarkable ileus. There is a moderate amount of s tool in the colon. There are surgical clips in the gallbladder fossa. Support lunsford rdware is in satisfactory radiographic position. There are multilevel compressio n fractures in the thoracolumbar spine, some of which have been augmented. There is fusion hardware in the lower cervical spine. Signed: Kd Monroe MDReport Verified Date/Time: 10/16/2017 10:07:28 [facility] Electronically signed by: KD MONROE M.D. on 018 10:07 AM RAD, CHEST, 1 VIEW, NON [id number] 10:07:00Reason for exam:-> rales and dyspnea/fatigueShould this be performed at the bedside?->YesFINAL REPORT Chest one view AP and abdomen two views supine 10/16/2017 10:06 AM CLINICAL INDICATION: rales and dyspnea/fatigue COMPARISON: None available IMPRESSION: There is bibasilar atelectasis with trace bilateral p leural effusions. Cardiomediastinal contours are within normal limits. The centr al pulmonary vasculature is not engorged. There is no radiographic evidence for bowel obstruction. There is no remarkable ileus. There is a moderate amount of s tool in the colon. There are surgical clips in the gallbladder fossa. Support lunsford rdware is in satisfactory radiographic position. There are multilevel compressio n fractures in the thoracolumbar spine, some of which have been augmented. There is fusion hardware in the lower cervical spine. Signed: Kd Monroe MDReport Verified Date/Time: 10/16/2017 10:07:28 Reading [facility] Electronically signed by: KD MONROE M.D. on 018 10:07 AM BASIC METABOLIC [id number] 04:45:00* Test Item Value Reference Range Comments SODIUM (BEAKER) (test azhc=685) 139 meq/L 136-145 POTASSIUM (BEAKER) (test bsqi=945) 4.3 meq/L 3.5-5.1 CHLORIDE (BEAKER) (test blko=835) 105 meq/L 98-107 CO2 (BEAKER) (test phuj=988) 27 meq/L 22-29 BLOOD UREA NITROGEN (BEAKER) (test brei=681) 27 mg/dL 7-21 CREATININE (BEAKER) (test vjyk=120) 0.91 mg/dL 0.57-1.25 GLUCOSE RANDOM (BEAKER) (test qlyx=640) 127 mg/dL 70-105 CALCIUM (BEAKER) (test sdjg=678) 9.8 mg/dL 8.4-10.2 EGFR (BEAKER) (test asdh=9257) 60 mL/min/1.73 sq m ESTIMATED GFR IS NOT ACCURATE CREATININE CLEARANCE IN PREDICTING GLOMERULAR FILTRATION RATE. ESTIMATED GFR IS NOT APPLICABLE FOR DIALYSIS PATIENTS. CBC W/PLT COUNT & AUTO [id number] 04:31:00* Test Item Value Reference Range Comments WHITE BLOOD CELL COUNT (BEAKER) (test zxvg=607) 8.7 K/ L 3.5-10.5 RED BLOOD CELL COUNT (BEAKER) (test tagh=694) 3.69 M/ L 3.93-5.22 HEMOGLOBIN (BEAKER) (test kjwj=368) 11.7 GM/DL 11.2-15.7 HEMATOCRIT (BEAKER) (test mgap=097) 35.6 % 34.1-44.9 MEAN CORPUSCULAR VOLUME (BEAKER) (test dzwr=731) 96.5 fL 79.4-94.8 MEAN CORPUSCULAR HEMOGLOBIN (BEAKER) (test qxhj=515) 31.7 pg 25.6-32.2 MEAN CORPUSCULAR HEMOGLOBIN CONC (BEAKER) (test epad=315) 32.9 GM/DL 32.2-35.5 RED CELL DISTRIBUTION WIDTH (BEAKER) (test nsrl=753) 15.3 % 11.7-14.4 PLATELET COUNT (BEAKER) (test oiwa=634) 127 K/CU MM 150-450 MEAN PLATELET VOLUME (BEAKER) (test bpwp=524) 11.5 fL 9.4-12.3 NUCLEATED RED BLOOD CELLS (BEAKER) (test cdbm=609) 0 /100 WBC 0-0 NEUTROPHILS RELATIVE PERCENT (BEAKER) (test ufin=207) 81 % LYMPHOCYTES RELATIVE PERCENT (BEAKER) (test jmex=433) 12 % MONOCYTES RELATIVE PERCENT (BEAKER) (test dbab=933) 6 % EOSINOPHILS RELATIVE PERCENT (BEAKER) (test dguf=108) 0 % BASOPHILS RELATIVE PERCENT (BEAKER) (test nthc=543) 0 % NEUTROPHILS ABSOLUTE COUNT (BEAKER) (test zdqx=793) 7.05 K/ L 1.56-6.13 LYMPHOCYTES ABSOLUTE COUNT (BEAKER) (test giio=432) 1.02 K/ L 1.18-3.74 MONOCYTES ABSOLUTE COUNT (BEAKER) (test zwnu=664) 0.55 K/ L 0.24-0.36 EOSINOPHILS ABSOLUTE COUNT (BEAKER) (test izoq=749) 0.00 K/ L 0.04-0.36 BASOPHILS ABSOLUTE COUNT (BEAKER) (test bofp=403) 0.01 K/ L 0.01-0.08 IMMATURE GRANULOCYTES-RELATIVE PERCENT (BEAKER) (test qpsv=9024) 0 % 0-1 CBC W/PLT COUNT & AUTO [id number] 05:53:00* Test Item Value Reference Range Comments WHITE BLOOD CELL COUNT (BEAKER) (test ypfb=948) 9.1 K/ L 3.5-10.5 RED BLOOD CELL COUNT (BEAKER) (test sppj=276) 3.73 M/ L 3.93-5.22 HEMOGLOBIN (BEAKER) (test shfw=815) 11.8 GM/DL 11.2-15.7 HEMATOCRIT (BEAKER) (test byse=004) 36.3 % 34.1-44.9 MEAN CORPUSCULAR VOLUME (BEAKER) (test gmfo=400) 97.3 fL 79.4-94.8 Discordant MCV result Compare to previous result, Clinical correlation recommended. MEAN CORPUSCULAR HEMOGLOBIN (BEAKER) (test svkg=496) 31.6 pg 25.6-32.2 MEAN CORPUSCULAR HEMOGLOBIN CONC (BEAKER) (test iqxt=106) 32.5 GM/DL 32.2-35.5 RED CELL DISTRIBUTION WIDTH (BEAKER) (test istm=803) 15.6 % 11.7-14.4 PLATELET COUNT (BEAKER) (test irbx=708) 146 K/CU MM 150-450 MEAN PLATELET VOLUME (BEAKER) (test wdag=089) 12.3 fL 9.4-12.3 NUCLEATED RED BLOOD CELLS (BEAKER) (test yhfc=307) 0 /100 WBC 0-0 NEUTROPHILS RELATIVE PERCENT (BEAKER) (test prou=239) 86 % LYMPHOCYTES RELATIVE PERCENT (BEAKER) (test hrol=466) 10 % MONOCYTES RELATIVE PERCENT (BEAKER) (test qsyq=256) 4 % EOSINOPHILS RELATIVE PERCENT (BEAKER) (test kifw=123) 0 % BASOPHILS RELATIVE PERCENT (BEAKER) (test fkjr=282) 0 % NEUTROPHILS ABSOLUTE COUNT (BEAKER) (test rwut=304) 7.82 K/ L 1.56-6.13 LYMPHOCYTES ABSOLUTE COUNT (BEAKER) (test uwst=511) 0.88 K/ L 1.18-3.74 MONOCYTES ABSOLUTE COUNT (BEAKER) (test irlu=801) 0.35 K/ L 0.24-0.36 EOSINOPHILS ABSOLUTE COUNT (BEAKER) (test ygag=701) 0.00 K/ L 0.04-0.36 BASOPHILS ABSOLUTE COUNT (BEAKER) (test yrfm=672) 0.00 K/ L 0.01-0.08 IMMATURE GRANULOCYTES-RELATIVE PERCENT (BEAKER) (test tove=2081) 0 % 0-1 BASIC METABOLIC [id number] 04:33:00* Test Item Value Reference Range Comments SODIUM (BEAKER) (test sfwy=946) 139 meq/L 136-145 POTASSIUM (BEAKER) (test umuu=504) 4.6 meq/L 3.5-5.1 Specimen slightly hemolyzed CHLORIDE (BEAKER) (test gdkr=276) 105 meq/L 98-107 CO2 (BEAKER) (test bnzx=168) 25 meq/L 22-29 BLOOD UREA NITROGEN (BEAKER) (test qwbw=821) 26 mg/dL 7-21 CREATININE (BEAKER) (test koev=458) 0.96 mg/dL 0.57-1.25 Specimen slightly hemolyzed GLUCOSE RANDOM (BEAKER) (test zfhc=180) 110 mg/dL 70-105 CALCIUM (BEAKER) (test yeri=337) 10.3 mg/dL 8.4-10.2 EGFR (BEAKER) (test qdnw=9402) 56 mL/min/1.73 sq m ESTIMATED GFR IS NOT ACCURATE CREATININE CLEARANCE IN PREDICTING GLOMERULAR FILTRATION RATE. ESTIMATED GFR IS NOT APPLICABLE FOR DIALYSIS PATIENTS. URINALYSIS W/ [id number] 04:19:00* Test Item Value Reference Range Comments COLOR (BEAKER) (test qmbl=286) Light Yellow CLARITY (BEAKER) (test venm=946) Clear SPECIFIC GRAVITY UA (BEAKER) (test hxxz=825) 1.006 1.001-1.035 PH UA (BEAKER) (test oits=105) 5.5 5.0-8.0 PROTEIN UA (BEAKER) (test fcsy=991) Negative Negative GLUCOSE UA (BEAKER) (test zrqz=156) Negative Negative KETONES UA (BEAKER) (test wlyg=751) Negative Negative BILIRUBIN UA (BEAKER) (test clqv=295) Negative Negative BLOOD UA (BEAKER) (test zgid=312) Negative Negative NITRITE UA (BEAKER) (test xfpm=241) Negative Negative LEUKOCYTE ESTERASE UA (BEAKER) (test fkbb=447) Negative Negative UROBILINOGEN UA (BEAKER) (test fedi=966) 0.2 mg/dL 0.2-1.0 RBC UA (BEAKER) (test rvay=495) < /HPF WBC UA (BEAKER) (test noaq=178) < /HPF BACTERIA (BEAKER) (test hhsn=795) Rare MUCUS (BEAKER) (test tuzz=7300) Rare HYALINE CASTS (BEAKER) (test vnzi=475) 3 /LPF AMORPHOUS CRYSTALS (BEAKER) (test yjak=7693) Rare SOURCE(BEAKER) (test ahik=9899) Urine, Real BASIC METABOLIC [id number] 04:03:00* Test Item Value Reference Range Comments SODIUM (BEAKER) (test pjta=221) 136 meq/L 136-145 POTASSIUM (BEAKER) (test sbxp=419) 4.8 meq/L 3.5-5.1 Specimen slightly hemolyzed CHLORIDE (BEAKER) (test tkth=954) 105 meq/L 98-107 CO2 (BEAKER) (test fcxh=005) 22 meq/L 22-29 BLOOD UREA NITROGEN (BEAKER) (test owbm=588) 25 mg/dL 7-21 CREATININE (BEAKER) (test mxmn=558) 0.96 mg/dL 0.57-1.25 Specimen slightly hemolyzed GLUCOSE RANDOM (BEAKER) (test zaou=125) 141 mg/dL 70-105 CALCIUM (BEAKER) (test atht=345) 9.9 mg/dL 8.4-10.2 EGFR (BEAKER) (test kcce=1299) 56 mL/min/1.73 sq m ESTIMATED GFR IS NOT ACCURATE CREATININE CLEARANCE IN PREDICTING GLOMERULAR FILTRATION RATE. ESTIMATED GFR IS NOT APPLICABLE FOR DIALYSIS PATIENTS. PROTHROMBIN TIME/[id number] 03:53:00* Test Item Value Reference Range Comments PROTIME (BEAKER) (test icnt=081) 16.2 seconds 11.7-14.7 INR (BEAKER) (test dtbs=823) 1.3 <=5.9 RECOMMENDED COUMADIN/WARFARIN INR THERAPY RANGESSTANDARD DOSE: 2.0 - 3.0 Inclu elpidio: PROPHYLAXIS for venous thrombosis, systemic embolization; TREATMENT for cailin ous thrombosis and/or pulmonary embolus.HIGH RISK: Target INR is 2.5-3.5 for pat ients with mechanical heart valves.CBC W/PLT COUNT & AUTO [id number] 03:32:00* Test Item Value Reference Range Comments WHITE BLOOD CELL COUNT (BEAKER) (test krcb=302) 6.1 K/ L 3.5-10.5 RED BLOOD CELL COUNT (BEAKER) (test hgyq=978) 3.17 M/ L 3.93-5.22 HEMOGLOBIN (BEAKER) (test grxl=172) 10.3 GM/DL 11.2-15.7 HEMATOCRIT (BEAKER) (test bfne=426) 32.2 % 34.1-44.9 MEAN CORPUSCULAR VOLUME (BEAKER) (test zrij=667) 101.6 fL 79.4-94.8 MEAN CORPUSCULAR HEMOGLOBIN (BEAKER) (test eogo=859) 32.5 pg 25.6-32.2 MEAN CORPUSCULAR HEMOGLOBIN CONC (BEAKER) (test oyuf=273) 32.0 GM/DL 32.2-35.5 RED CELL DISTRIBUTION WIDTH (BEAKER) (test jaeq=274) 15.4 % 11.7-14.4 PLATELET COUNT (BEAKER) (test tjlq=180) 94 K/CU MM 150-450 MEAN PLATELET VOLUME (BEAKER) (test fuey=554) 11.4 fL 9.4-12.3 NUCLEATED RED BLOOD CELLS (BEAKER) (test jtjg=701) 0 /100 WBC 0-0 NEUTROPHILS RELATIVE PERCENT (BEAKER) (test pwdn=613) 82 % LYMPHOCYTES RELATIVE PERCENT (BEAKER) (test rous=630) 14 % MONOCYTES RELATIVE PERCENT (BEAKER) (test xnot=579) 3 % EOSINOPHILS RELATIVE PERCENT (BEAKER) (test eeyv=098) 0 % BASOPHILS RELATIVE PERCENT (BEAKER) (test viui=855) 0 % NEUTROPHILS ABSOLUTE COUNT (BEAKER) (test ybxu=492) 4.99 K/ L 1.56-6.13 LYMPHOCYTES ABSOLUTE COUNT (BEAKER) (test vbjj=670) 0.88 K/ L 1.18-3.74 MONOCYTES ABSOLUTE COUNT (BEAKER) (test wzaf=805) 0.20 K/ L 0.24-0.36 EOSINOPHILS ABSOLUTE COUNT (BEAKER) (test lgiq=699) 0.00 K/ L 0.04-0.36 BASOPHILS ABSOLUTE COUNT (BEAKER) (test zdjy=952) 0.00 K/ L 0.01-0.08 IMMATURE GRANULOCYTES-RELATIVE PERCENT (BEAKER) (test mjpf=3459) 0 % 0-1 MRI SPINE LUMBAR WO [place] [address] Patient Name: ARJUN CRAIG MR #: [id number] : 1940 Age/Sex: 77/F Req #: [id number] Adm Physician: Ordered by: AMANDA CEBALLOS M.D. Report #: [id number] Location: MRI Room/Bed: Procedure: [id number] MRI/MRI SPINE LUMBAR WO Exam Date: Exam Time: REPORT STATUS: Signed His tory: Low back pain Comparison studies: MRI of the lumbar spine 10/13/2017 Technique: Sagittal T1, T2 and IR, coronal T2, axial T2 with and without f at sat and axial spin density oblique Intravenous contrast: None Findi ngs: Number of lumbar vertebral bodies: 5 . Soft tissues: Again seen m etallic susceptibility artifact seen in the prevertebral soft disc secondary t o to vascular stents. Straightening and mild reversal of the lumbar lordosi s centered at L2. Mild grade 1 anterolisthesis of L1 over L2. Paraspinal muscles: Moderate to severe diffuse fatty atrophy from level L4-S1 . Lower thoracic cord: Significantly decrease in size of the posterior epidural fluid collection at the lower thoracic spine spanning from T11 made level through L1 superior endplate with improved mass effect over the thecal sac, moderate at T11-T12. The conus ends at L1-L2 Cauda equina:No masses. No arachnoiditis . Vertebrae: Multiple chronic compression fractures seen throughout the lumbar spine, with associated vertebroplasty changes at T11, L2, and L3, unc hanged. Chronic superior endplate compression deformity at T12, with approxima te 20% loss of height, unchanged. Modic type I changes at L1-L2, unchanged Degenerative changes: L1-L2 Symmetric disc bulge causes mild canal sten osis and severe right foraminal stenosis, stable. L2-L3: Mildly degener ated disc Symmetric disc bulge and facet arthropathy cause mild canal stenosis without significant foraminal stenosis, stable. L3-L4: Moderately dege nerated disc. Symmetric disc bulge and facet arthropathy cause mild canal sten osis. Mild left foraminal stenosis, stable. L4-L5: Moderately degenerat ed disc Disc bulge asymmetric to the right and facet arthropathy and ligamentu m flavum buckling cause mild canal stenosis. Mild bilateral foraminal stenos is, stable. L5-S1: Moderately degenerated disc. Symmetric disc bulge wi thout canal stenosis. Severe right and moderate left foraminal narrowing, stab le. Partially visualized sacrum: No significant abnormality . IMPRES PATSY: 1. Decrease in size dorsal posterior heterogeneous epidural fluid collection T11 through L1 with improved thecal sac compression, moderate at T 11-12, most consistent with evolving hematoma. 2. Stable multiple, chronic compression fractures with vertebroplasty changes. No acute compression fractu res identified. 3. Stable degenerative changes of the lumbar spine as describ ed above. Signed by: DR Willie Virgen M.D. on 10/31/2017 9:41 AM Dictated By: WILLIE NINO MD 0 Transcribed By: LANIE on 10/31/17940 COPY TO : AMANDA CEBALLOS M.D. MRI SPINE LUMBAR WO [place] [address] Patient Name: ARJUN CRAIG MR #: [id number] : 1940 Age/Sex: 77/F Req #: [id number] Adm Physician: Ordered by: BETH BARFIELD NP Report #: [id number] Location: ER Room/Bed: Procedure: [id number] MRI/MRI SPINE LUMBAR WO Exam D ate: Exam Time: REPORT STATUS: Signed Hist ory: 77-year-old female with back pain after epidural steroid injection kaylynn nevarez today. Comparison studies: CT pelvis, 04/07/2016 Technique: Sagit riley T1, T2 and IR, coronal T2, axial T2 with and without fat sat and axial spi n density oblique Intravenous contrast: None Findings: Number of breezy mbar vertebral bodies: 5 . Soft tissues: Extensive metallic susceptibility artifact seen in the prevertebral soft tissues, particularly at the level of L 3, presumably due to vascular stents. Paraspinal muscles: Moderate diffus e fatty atrophy from level L4-S1 . Lower thoracic cord: Anterior displaceme nt of the lower thoracic spinal cord is seen from T10-T11 to T12-L1, with dors al effacement is seen at the T11 level. There is suggestion of a dorsal extra- axial, possible subdural collection measuring approximately 5.1 x 0.7 x 1.3 cm (series 2 image 9) which is isointense to the spinal cord on T1 and mildly hy perintense on T2. It is not the same intensity as fat or CSF. There is ques tionable tethering from the dorsal aspect of the cord to the posterior dura (s eries 2 image 8). The tip of the conus is at L1. Cauda equina:No masses. N o arachnoiditis . Vertebrae: Multiple chronic compression fractures see n throughout the lumbar spine, with associated vertebroplasty changes at T11, L2, and L3. Chronic superior endplate compression deformity at T12, with appro ximate 20% loss of height. Degenerative changes: L1-L2 Symmetric disc bulge causes mild canal stenosis and severe right foraminal stenosis. L2-L3: Mildly degenerated disc Symmetric disc bulge and facet arthropathy cause mild canal stenosis without significant foraminal stenosis. L3-L4: Moderately degenerated disc. Symmetric disc bulge and facet arthropathy cause mild canal stenosis. Mild left foraminal stenosis. L4-L5: Moderately degenerated disc Disc bulge asymmetric to the right and facet arthropathy and ligamentum flavum buckling cause mild canal stenosis. Moderate right and mil d left foraminal stenosis. L5-S1: Moderately degenerated disc. Symmetri c disc bulge without canal stenosis. Mild bilateral foraminal stenosis. Par tially visualized sacrum: No significant abnormality . IMPRESSION: E xam is limited by artifact from vascular stents. 1. 5 cm dorsal extra-axia l, possible subdural collection causing anterior displacement of the lower tho racic cord from T10-T11 through T12-L1. This is nonspecific, and may represent a hematoma, abscess, arachnoid cyst, or possibly iatrogenic fluid. No spinal cord signal changes. Further evaluation with MRI with contrast may be performe d, as clinically indicated. 2. Multiple chronic compression fractures status post vertebral plasty at T11, L2 and L3. Chronic superior endplate compression deformity at T12, with approximate 20% loss of height. No acute compression f ractures identified. 3. Suboptimal evaluation due to metallic susceptibility artifact. 4. Lumbar spondylosis as detailed above. Findings discussed with nurse practitioner Jaycee at 5:00 PM 10/13/2017 via telephone. A prel iminary report was given by Neuroradiology fellow Dr. Kelly at 5:06 PM on 10/13. I have reviewed the study and agree with the findings in the prelimi nary report. Signed by: Dr. Annabel Hubbard M.D. on 10/13/2017 10:16 PM Dictated By: ANNABEL HUBBARD MD 15 Transcribed By: LANIE on 10/13/172215 COPY TO: BETH BRIDGES [employer] RESEARCH ENGINEER SP LUMBAR AP LATERAL 2-3VWS [place] [address] Patient Name: ARJUN CRAIG MR #: [id number] : 1940 Age/Sex: 77/F Req #: [id number] Adm Physician: Ordered by: MONROE MCPHERSON MD Report #: [id number] Location: ER Room/Bed: Procedure: [id number] DX/SP LUMBAR AP LATERAL 2-3 VWS Exam Date: 10/13/17 Exam Time: 1450 REPORT STATUS: Signed PROCEDURE: X-RAY LUMBAR SPINE, TWO VIEWS COMPARISON: [facility] spine radiographs 06/02/2016 INDICATIONS: LOWER BACK PAIN FINDI NGS: AP, lateral, and spot lateral radiographs of the lumbar spine. Fiv e non-rib bearing lumbar vertebral bodies are identified. The bones are demin eralized. New vertebroplasty cement within T11 and L2 compared to 06/02/2016. Vertebroplasty cement again seen within L3. Multilevel degenerative c hanges include disc space narrowing, subchondral sclerosis, and marginal oste ophyte formation. Stable T12 vertebral body mild superior endplate compre ssion. No spondylolisthesis. IVC filter and multiple vascular stents o verlie the right abdomen suggesting venous stents within the IVC and common i liac veins. Stable stent overlies the expected left common iliac artery. Cholecystectomy clips. CONCLUSION: No acute abnormality. Vert ebroplasty of T11, L2, and L3. Demineralization and degenerative changes. Dictated by: Lamberto Gr M.D. on 10/13/2017 at 15:44 E lectronically approved by: Lamberto Gr M.D. on 10/13/2017 at 15:44 Dictated By: LAMBERTO GR MD [id number] Transcribed By: VITA on 10/13/17 [id number] COPY TO: MONROE HALL MD
[2019-03-12 16:15] VITALS: BP 138/88
[2019-03-12] MEDS ORDERED: BISMUTH SUBSALICYLATE 262 MG/15 ML 8OZ BTL PO PRN (16:15)
[2019-03-12] MEDS ORDERED: MAGNESIUM HYDROXIDE 30 ML UDC PO PRN (16:15)
[2019-03-12] MEDS ORDERED: PROMETHAZINE 25MG/ NS 50ML (IV) IV PRN (16:15)
[2019-03-12] MEDS ORDERED: ALLEGRA-D 24 H1 EACH (17:36)
[2019-03-12] MEDS ORDERED: ALDACTONE25 MG PO (17:36)
[2019-03-12] MEDS ORDERED: BACTRIM DS TAB1 EACH PO (17:36)
[2019-03-12] MEDS ORDERED: SOTALOL80 MG PO (17:36)
[2019-03-12] MEDS ORDERED: ATROVENT HFA12.9 GM (17:37)
[2019-03-12] MEDS ORDERED: INFLUENZA VIRUS VAC SPLIT INJ 0.5 ML SYR IM SCH (17:49)
[2019-03-12 17:57] LABS: INR 1.88; PROTHROMBIN TIME 22.3 seconds (11.9-14.5)
[2019-03-12] MEDS ORDERED: PIPER-TAZ 3.375 GM 50 ML IV SCH (18:00)
[2019-03-12 18:05] LABS: ALBUMIN 3.1 g/dL (3.5-5.0); ALBUMIN/GLOBULIN RATIO 0.8 (0.8-2.0); ANION GAP 13.8 mmol/L (8-16); CALCIUM 9.4 mg/dL (8.4-10.2); CREATININE, SERUM 1.22 mg/dL (0.57-1.11); POTASSIUM 3.8 mmol/L (3.5-5.1)
[2019-03-12] MEDS ORDERED: VANCOMYCIN 750MG/NS 150ML IVPB 150 ML IV ONE (18:15)
[2019-03-12] MEDS ORDERED: SODIUM CHLORIDE 0.9% 250ML 250 ML ONE (18:21)
--- NOTE | 2019-03-12 19:13 | Diagnostic Imaging Report ---
EXAMINATION: CHEST 2 VIEWS INDICATION: Chest pain tightness. Surgical clearance. COMPARISON: 12/14/2016. FINDINGS: TUBES and LINES: None. LUNGS: Lungs are well inflated. There are bibasilar atelectasis. There is minimal prominence of the central pulmonary vasculature, consistent with pulmonary venous congestion. PLEURA: No pleural effusion or pneumothorax. HEART AND MEDIASTINUM: Cardiac size is mildly enlarged. BONES AND SOFT TISSUES: No acute osseous lesion. Lower cervical fusion partially visualized. Lower thoracic vertebroplasty. UPPER ABDOMEN: No free air under the diaphragm. IMPRESSION: 1. Bibasilar atelectasis. 2. Mild cardiomegaly. Minimal bilateral pulmonary venous congestion. Signed by: Dr. Anthony Maurice M.D. on 03/12/2019 7:10 PM
--- NOTE | 2019-03-12 19:23 | Diagnostic Imaging Report ---
ANKLE 3+ VIEWS LEFT - 3 views HISTORY: Pain. Dropped case on anterior foot. COMPARISON: None available. FINDINGS: Bones: No acute displaced fracture. Osseous alignment is within normal limits. Joints: The joint spaces are well-maintained. Soft tissues: Marked soft tissue swelling of the dorsum of the forefoot. IMPRESSION: Marked soft tissue swelling of the dorsum of the forefoot. Signed by: Dr. Anthony Maurice M.D. on 03/12/2019 7:20 PM
[2019-03-12 20:00] VITALS: BP 122/63
[2019-03-12 21:46] LABS: BILIRUBIN,URINE NEGATIVE (NEGATIVE); CLARITY,URINE CLEAR (CLEAR); COLOR,URINE YELLOW (YELLOW); KETONES,URINE NEGATIVE (NEGATIVE); LEUKOCYTE ESTERASE ,URINE TRACE (NEGATIVE); NITRITE,URINE NEGATIVE (NEGATIVE); PROTEIN,URINE DIPSTICK NEGATIVE (NEGATIVE); URINE UROBILINOGEN 0.2 mg/dL (0.2 - 1)
[2019-03-12 21:58] LABS: EPITHELIAL CELLS,URINE MANY /LPF; RENAL EPITHELIAL CELLS,URINE FEW; WBC,URINE (MAN) 0-5 /HPF (0-5)
[2019-03-12] MEDS: SOTALOL HCL 80 MG TAB PO SCH (22:11)
[2019-03-12] MEDS: HYDROCODONE/APAP 5MG-325MG TAB PO PRN (22:30)
[2019-03-12] MEDS: PAROXETINE HCL 20 MG TAB PO SCH (22:44)
[2019-03-12 23:35] VITALS: BP 122/63
[2019-03-13] VITALS (7 sets, daily range): BP systolic 103–140; BP diastolic 55–83
--- NOTE | 2019-03-13 03:17 | Consultation ---
DATE OF CONSULTATION: CHIEF COMPLAINT AND HISTORY OF CHIEF COMPLAINT: Mrs. Adams is a most pleasant 79-year-old female, who was in her normal state of health at home when she dropped a heavy container plastic on her left foot. She noticed swelling and ultimately a large knot on the dorsum of the foot. When she presented to the office, she was placed in a compressive wrap and ultimately admitted due to worsening of her condition. There is a secondary cellulitis with possible abscess formation with a certain hematoma on the dorsum of the left foot, softball size in nature, approximately 6 cm in circumference and 4 cm deep. The patient was given oral antibiotics prior to admission and is currently on IV vancomycin. ALLERGIES: THE PATIENT IS PENICILLIN ALLERGIC WELL IODINE AND COMPAZINE. PREVIOUS MEDICAL HISTORY: Includes hypertension, congestive heart failure. She has some degree of depression and anxiety as well as chronic atrial fibrillation, for which she takes warfarin. REVIEW OF SYSTEMS: Otherwise within normal limits. She is complaining of pain in the left foot. DIAGNOSES: Hematoma with secondary cellulitis of the left foot on a patient with atrial fibrillation on chronic warfarin. Multiple additional comorbidities well documented elsewhere within the chart. Radiographs, MRI, and labs have all been ordered and medical management by Dr. Bailey with cardiac clearance and anticoagulant management with Dr. Isaac Wheeler. I will follow and review and likely perform I and D with evacuation of the hematoma of her left foot once the cellulitis is showing some improvement later this week. MARIA T Bass/JORGE /[id number]
[2019-03-13] MEDS: LISINOPRIL 2.5 MG TAB PO SCH (08:56)
[2019-03-13] MEDS: SOTALOL HCL 80 MG TAB PO SCH ×2 (08:56→21:00)
[2019-03-13] MEDS: SPIRONOLACTONE 25 MG TAB PO SCH (08:56)
[2019-03-13] MEDS ORDERED: PAROXETINE HCL 20 MG TAB PO SCH (09:00)
[2019-03-13] MEDS ORDERED: SOTALOL HCL 80 MG TAB PO SCH (09:00)
--- NOTE | 2019-03-13 13:05 | NUR ---
Dr Wheeler had rounds
[2019-03-13] MEDS ORDERED: GADOBENATE DIMEGLUMINE 0 ML IV ONE (13:43)
--- NOTE | 2019-03-13 14:01 | NUR ---
Spoke to Dr Bailey regarding no labs has been ordered today and patient not on any antibiotic, he said he already seen patient yesterday, he aware about all these, No new orders
--- NOTE | 2019-03-13 14:55 | Diagnostic Imaging Report ---
TECHNIQUE: Magnetic resonance imaging of the LEFT foot (midfoot and forefoot) was performed WITHOUT injected contrast. Enhancement characteristics cannot be assessed in the absence of intravenous contrast. HISTORY: Abscess, cellulitis, top of left foot, pain, hematoma, per prior patient provided history, dropped plastic case on top of foot last Monday COMPARISON: Left foot radiographs March 12, 2019. DISCUSSION: Bone: No focal or infiltrative bone marrow replacing abnormality. No acute fracture or osteonecrosis. Joints: Multifocal degenerative changes, most notably moderate at the dorsal aspect of the naviculocuneiform articulations. Fluid within the visualized joints is within physiologic limits. Soft Tissues: A 4.1 cm (AP) x 5.1 cm (ML) x 2.3 cm (CC) heterogeneous collection within the dorsal soft tissues centered over the metatarsal diaphyses. IMPRESSION: Findings compatible with a dorsal foot soft tissue hematoma, superimposed infection/abscess may be a consideration the appropriate setting. Signed by: Dr. Dillan Blackmon D.O., M.M.M. on 03/13/2019 2:51 PM
[2019-03-13 16:52] LABS: BASOPHILS % 0.3 % (0.0-1.0); EOSINOPHILS # (AUTO) 0.1 (0.0-0.4); EOSINOPHILS % 1.1 % (0.0-6.0); HEMATOCRIT 38.5 % (34.2-44.1); HEMOGLOBIN 11.9 g/dL (12.0-16.0); LYMPHOCYTES # (AUTO) 1.5 (1.0-3.2); LYMPHOCYTES % 19.8 % (18.0-39.1); MEAN CORPUSCULAR HEMOGLOBIN 30.4 pg (28-32); MEAN CORPUSCULAR HGB CONC 30.9 g/dL (31-35); MEAN CORPUSCULAR VOLUME 98.5 fL (81-99); MONOCYTES # (AUTO) 0.8 (0.2-0.8); MONOCYTES % 11.1 % (4.4-11.3); NEUTROPHILS # (AUTO) 4.9 (2.1-6.9); NEUTROPHILS % 67.2 % (38.7-80.0); PLATELET COUNT 96 x10e3/uL (140-360); RED BLOOD COUNT 3.91 x10e6/uL (3.6-5.1); RED CELL DISTRIBUTION WIDTH 15.2 % (11.7-14.4)
[2019-03-13] MEDS ORDERED: VANCOMYCIN 750MG/NS 150ML IVPB 150 ML IV ONE (17:00)
--- NOTE | 2019-03-13 18:16 | NUR ---
patient resting in bed, assisted her to use restroom, not in any distress
--- NOTE | 2019-03-13 19:25 | NUR ---
Patient visited in room during nursing rounds. Patient alert and oriented x3. Patient has left foot cellulitis and currently covered with gauze and kerlix (done by [employer]). Pt has intermittent pain on left foot. On scheduled IV antibiotics. Call olivo within reach. Will monitor closely.
[2019-03-13] MEDS: PAROXETINE HCL 20 MG TAB PO SCH (21:00)
[2019-03-13] MEDS: HYDROCODONE/APAP 5MG-325MG TAB PO PRN (22:40)
[2019-03-14] VITALS (7 sets, daily range): BP systolic 119–156; BP diastolic 61–87
[2019-03-14 06:32] LABS: BASOPHILS % 0.4 % (0.0-1.0); EOSINOPHILS # (AUTO) 0.1 (0.0-0.4); EOSINOPHILS % 1.3 % (0.0-6.0); HEMATOCRIT 36.4 % (34.2-44.1); HEMOGLOBIN 11.4 g/dL (12.0-16.0); LYMPHOCYTES # (AUTO) 1.2 (1.0-3.2); LYMPHOCYTES % 21.8 % (18.0-39.1); MEAN CORPUSCULAR HEMOGLOBIN 30.2 pg (28-32); MEAN CORPUSCULAR HGB CONC 31.3 g/dL (31-35); MEAN CORPUSCULAR VOLUME 96.6 fL (81-99); MONOCYTES # (AUTO) 0.6 (0.2-0.8); MONOCYTES % 10.3 % (4.4-11.3); NEUTROPHILS # (AUTO) 3.6 (2.1-6.9); NEUTROPHILS % 65.8 % (38.7-80.0); PLATELET COUNT 96 x10e3/uL (140-360); RED BLOOD COUNT 3.77 x10e6/uL (3.6-5.1)
[2019-03-14 06:42] LABS: INR 1.23; PROTHROMBIN TIME 16.1 seconds (11.9-14.5)
[2019-03-14 06:52] LABS: ANION GAP 11.9 mmol/L (8-16); CALCIUM 9.3 mg/dL (8.4-10.2); CREATININE, SERUM 1.01 mg/dL (0.57-1.11); POTASSIUM 3.9 mmol/L (3.5-5.1)
--- NOTE | 2019-03-14 07:14 | Consultation ---
DATE OF CONSULTATION: 03/13/2019 The patient admitted for Dr. Bailey. HISTORY OF PRESENT ILLNESS: This 79-year-old patient was kindly referred for cardiac evaluation. The patient was hospitalized because of severe pain and swelling on the dorsum of her left foot. The patient stated that she was ambulating at home with a walker and a carrying container with some plastic bottles which slipped out of her hand and some of the content landed on the dorsum of her foot. She was seen by Dr. Isma Manley, who noticed sizable swelling and a knot described as 6 cm in the circumference and 4 cm deep. The patient was treated with a compressive wrap and given antibiotic orally and was sent to the hospital for admission. The patient states that with rest, elevation, and compression, some of the swelling has been reduced. Also, her pain had lessened. However, she still has significant pain. An x-ray was obtained, which showed soft tissue swelling but no fractures. PAST MEDICAL HISTORY: Reveals that she has coronary artery disease with chronic systolic and diastolic congestive heart failure, hypertension, and paroxysmal atrial fibrillation. The patient had history of DVT and had a filter placed. However, she had recurrent deep vein thrombosis and the filter was obstructing the access and had to be crushed at the time. The patient has been on chronic warfarin anticoagulation. She also has rheumatoid arthritis, felty syndrome and thrombocytopenia. History of hyperlipidemia, depression, peripheral arterial disease, mostly involving the iliac arteries. IBS with chronic diarrhea. The previous esophageal stricture requiring dilatation, kyphoplasty at the level of L2. She also had a breast cancer on the left, which had radiation. She had cataract surgery and bilateral knee replacements. ALLERGIES: AMOXICILLIN, COMPAZINE, IODINE, PROTONIX, AND VERAPAMIL. THE PATIENT ALSO HAS INTOLERANCE TO STATINS. SOCIAL HISTORY: Negative. REVIEW OF SYSTEMS: The remainder of the systems reviewed with the patient denies any headache or sore throat. The patient denies any cough or sputum production. The patient had recent episodes of constipation and diarrhea, which is related to irritable bowel syndrome. PHYSICAL EXAMINATION: VITAL SIGNS: Reveals a temperature of 96.8, blood pressure 140/76, pulse is recorded at 56 per minute, and oxygen saturation on room air is 100%. NECK: Supple and there are no bruits. CHEST: Clear to auscultation. CARDIOVASCULAR SYSTEM: Normal apical impulse. The rhythm is regular. First and second heart sounds are normal. There is no S3. ABDOMEN: Soft. There is no tenderness or organomegaly. EXTREMITIES: Show varicosities and increased bruising. The left ankle and foot are bandaged. NEUROLOGIC: Does not reveal any motor defect. IMPRESSION: 1. Injury to the left foot resulting in hematoma and possible cellulitis and abscess formation. 2. Hypertensive and coronary sclerotic heart disease with chronic systolic and diastolic congestive heart failure. 3. Paroxysmal atrial fibrillation. 4. History of deep vein thrombosis. 5. Rheumatoid arthritis. 6. History of thrombocytopenia. 7. IBS with constipation and diarrhea. 8. Depression. I agree with the excellent management considering of rest and elevation of the left leg with bandaging. Aspiration of the hematoma can be done preferable with low ProTime in the range of 15 and INR of 1.5. At the present time, the patient's ProTime is 72.3 and INR is 1.88. The patient also has some mild chronic kidney disease with a creatinine of 1.22. The patient's electrocardiogram shows normal sinus rhythm with left bundle-branch block and left anterior hemiblock pattern. The patient's BNP is also elevated reflecting the patient's chronic congestive heart failure, and I would recommend to continue her home medications. Thank you very much for letting me see this very nice patient. MD MIKO ArechigaH/MODL /[id number]
[2019-03-14] MEDS: SPIRONOLACTONE 25 MG TAB PO SCH (09:29)
[2019-03-14] MEDS: SOTALOL HCL 80 MG TAB PO SCH ×2 (09:30→21:00)
[2019-03-14] MEDS: LISINOPRIL 2.5 MG TAB PO SCH (09:30)
--- NOTE | 2019-03-14 13:50 | NUR ---
Dr Arriola here for rounds, changed dressing, new orders recvd
--- NOTE | 2019-03-14 17:00 | NUR ---
Vanco trough level 4.[address] Bailey, new order received to give dose today, patient is stable
[2019-03-14] MEDS ORDERED: VANCOMYCIN 750MG/NS 150ML IVPB 150 ML IV ONE (18:00)
--- NOTE | 2019-03-14 18:16 | Progress Note ---
DATE: Followup Consultation CHIEF COMPLAINT: The patient has a hematoma on her left foot with secondary cellulitis. On evaluation today, the patient states that her foot is still very painful with a continued swelling with cellulitis ascending on the dorsal aspect of the left foot. There is a significant hematoma, which is draining very minimally from the dorsal most aspect with a darkened appearance on the tightened skin on the dorsal aspect. The patient states she is anxious for procedure and improvement due to the fact that her is home alone and as an amputee, is unable to manage his care and household duties without her. The patient is otherwise in her normal state of health and is being seen and evaluated by both, Dr. Bailey and Dr. Isaac Wheeler. All notes and evaluations are otherwise appreciated. Dr. Wheeler has indicated that she is okay to proceed with surgery for I and D once labs have reached appropriate levels, specifically the PT at 15 and INR at 1.5. She is certainly trending down and has reached the level of PT 16.1 and INR 1.23 as of today. Incision and drainage is planned for tomorrow morning appropriate surgical consent and the patient has agreed to accept all risks inherent to the procedure. The labs will be redrawn in the morning to ensure that the appropriate levels have been reached. Once the procedure is performed, a discharge with the assistance of home health will be facilitated. MARIA T Bass/JORGE /[id number]
[2019-03-14] MEDS: HYDROCODONE/APAP 5MG-325MG TAB PO PRN (19:17)
--- NOTE | 2019-03-14 19:30 | NUR ---
Patient visited in room during nursing rounds. Patient alert and oriented x3. Patient has left foot cellulitis and currently covered with gauze and kerlix (done by Director Of Retail Marketing). Pt has intermittent pain on left foot. Pt aware scheduled for I&D of left foot abscess. Call olivo within reach. Will monitor closely.
[2019-03-14] MEDS: PAROXETINE HCL 20 MG TAB PO SCH (21:00)
[2019-03-15] VITALS (8 sets, daily range): BP systolic 119–183; BP diastolic 68–87
[2019-03-15 05:54] LABS: INR 1.01; PROTHROMBIN TIME 13.8 seconds (11.9-14.5)
--- NOTE | 2019-03-15 08:02 | NUR ---
Received report from night nurse. Patient resting in bed, no signs of distress at this time. All safety measures in place. Will continue to monitor.
--- NOTE | 2019-03-15 08:55 | NUR ---
Patient leaving unit for procedure. In stable condition, no signs of distress at this time.
[2019-03-15] MEDS: SOTALOL HCL 80 MG TAB PO SCH ×3 (09:00→21:31)
[2019-03-15] MEDS: LISINOPRIL 2.5 MG TAB PO SCH ×2 (09:00→12:36)
[2019-03-15] MEDS: SPIRONOLACTONE 25 MG TAB PO SCH ×2 (09:00→12:36)
[2019-03-15] MEDS ORDERED: NEOSTIGMINE 1 MG/ML 10ML VIAL ONE (09:58)
[2019-03-15] MEDS ORDERED: BACITRACIN 50,000 UNIT VIAL ONE (09:58)
[2019-03-15] MEDS ORDERED: SODIUM CHLORIDE 0.9% 250ML 250 ML ONE (10:35)
[2019-03-15] MEDS ORDERED: BUPIVACAINE HCL 0.5% INJ 30 ML VIAL INJ ONE (10:41)
--- NOTE | 2019-03-15 11:37 | NUR ---
Patient returned to unit from procedure. In stable condition, no signs of distress at this time. All safety measures in place. Will continue to monitor.
[2019-03-15] MEDS ORDERED: HYDRALAZINE HCL 10 MG TAB PO PRN (13:45)
--- NOTE | 2019-03-15 15:09 | NUR ---
Spoke to pt regarding home health order. Pt stated she previously used [facility]. Cm called and spoke with Miguel at [facility] who stated that they are only currently taking traditional MCR. CM informed pt. She states she's fine with using any company that takes her insurance. Choice letter signed for [facility], [facility], [facility], and [facility]. Signed copy placed in chart. Copy to pt. IMM letter delivered and explained to pt. She verbalized understanding. Signed copy placed in chart. Copy to pt. CM business card given to pt for any additional questions/concerns. REferral faxed to [facility] Erika Ashby with [facility] was informed of referral.
--- NOTE | 2019-03-15 16:26 | NUR ---
Per Erika Ashby with [facility], they are able to accept pt. CM to call with discharge date
[2019-03-15] MEDS ORDERED: PROPOFOL IV EMULSION 10 MG/ML 20 ML VIAL ONE (17:57)
[2019-03-15] MEDS ORDERED: ONDANSETRON HCL INJ 2MG/ML 2ML 2 MG/ML VIAL ONE (17:57)
[2019-03-15] MEDS ORDERED: LIDOCAINE HCL 2% LOCAL INJ 5 ML SDV VIAL INJ ONE (17:57)
[2019-03-15] MEDS ORDERED: DEXAMETHASONE SOD PHOS INJ 4 MG/ML VIAL ONE (17:57)
[2019-03-15] MEDS ORDERED: GLYCOPYRROLATE INJ 1MG/ 5 ML SYR ONE (17:57)
[2019-03-15] MEDS ORDERED: VANCOMYCIN HCL 1 GM VIAL ONE (17:57)
[2019-03-15] MEDS ORDERED: SEVOFLURANE INHAL SOLN 250 ML PEN BTL ONE (17:57)
[2019-03-15] MEDS ORDERED: EPHEDRINE SULFATE INJ 50 MG/10 ML SYR ONE (17:57)
[2019-03-15] MEDS ORDERED: FENTANYL CITRATE/PF 100MCG/2 ML INJ ONE (18:13)
--- NOTE | 2019-03-15 19:05 | NUR ---
Bedside report given to night nurse. Patient in stable condition, no c/o pain or signs of distress at this time. All safety measures in place.
--- NOTE | 2019-03-15 19:19 | Operative Report ---
DATE OF PROCEDURE: 03/15/2019 SURGEON: Isma Manley DPM PREOPERATIVE DIAGNOSES: Hematoma with skin slough, dorsal aspect of the left foot and secondary cellulitis. POSTOPERATIVE DIAGNOSES: Hematoma with skin slough, dorsal aspect of the left foot and secondary cellulitis. TITLE OF OPERATION: Incision and drainage of the left foot with evacuation of hematoma, left foot. PROCEDURE IN DETAIL: The patient was taken to the operating room in a mildly sedated state, placed on the operating table in supine position. Following induction of general anesthetic, the left lower extremity was elevated to 60 degrees to exsanguinate before inflating the pneumatic thigh tourniquet to 350 mmHg to create good hemostasis. Left lower extremity was placed on the operating table and a distal linear incision was placed overlying the dorsal lateral hematoma, which was actually quite large, this incision was approximately 2 cm in length. The large hematoma was found subcutaneously and evacuated utilizing suction and compression, this having been accomplished. Bovie was used to cauterize any continued bleeding. The area was irrigated with copious amounts of sterile bacitracin solution utilizing Simpulse irrigation. This having been accomplished, a TLS drain was installed. Human tissue allograft was inserted to facilitate difficult wound healing as there is already a soft tissue necrosis and slough on the dorsal wound. This having been accomplished, the area was closed with three simple sutures very lightly to facilitate any further evacuation that may be necessary bedside. There was a packing installed on the distal aspect of the wound as well and the appropriate mildly compressive yet nonadhesive dressing was applied. There was no tourniquet used at all throughout this case and the patient had no bleeding at the time of surgery. No olivier fresh bleeding. Only mature hematoma. Deep wound culture and sensitivities have been obtained. The patient was given IV vancomycin at the time of surgery and further postoperative antibiotics will be prescribed as needed and according to deep wound culture and sensitivity, there was no olivier purulence or abscessing noted, but there is a significant amount of cellulitis and skin slough, secondary to significant hematoma. The patient tolerated both anesthetic and procedure very well, and drain was noted to be functional when she left the OR. She is transferred back to the floor, where she will continue on antibiotics. Control of anticoagulation by Dr. Wheeler and once deemed stable will be discharged. The patient will need home health upon discharge to facilitate further care and follow up in my office on an outpatient basis. MARIA T Bass /[id number]
[2019-03-15] MEDS: PAROXETINE HCL 20 MG TAB PO SCH (21:31)
[2019-03-15] MEDS: HYDROCODONE/APAP 5MG-325MG TAB PO PRN (22:54)
[2019-03-16] VITALS (8 sets, daily range): BP systolic 104–144; BP diastolic 54–72
[2019-03-16 05:38] LABS: BASOPHILS % 0.1 % (0.0-1.0); EOSINOPHILS # (AUTO) 0.2 (0.0-0.4); HEMATOCRIT 34.8 % (34.2-44.1); HEMOGLOBIN 11.2 g/dL (12.0-16.0); LYMPHOCYTES # (AUTO) 0.9 (1.0-3.2); LYMPHOCYTES % 10.1 % (18.0-39.1); MEAN CORPUSCULAR HEMOGLOBIN 30.8 pg (28-32); MEAN CORPUSCULAR HGB CONC 32.2 g/dL (31-35); MEAN CORPUSCULAR VOLUME 95.6 fL (81-99); MONOCYTES # (AUTO) 0.5 (0.2-0.8); MONOCYTES % 5.4 % (4.4-11.3); NEUTROPHILS # (AUTO) 7.4 (2.1-6.9); NEUTROPHILS % 82.1 % (38.7-80.0); PLATELET COUNT 112 x10e3/uL (140-360); RED BLOOD COUNT 3.64 x10e6/uL (3.6-5.1); RED CELL DISTRIBUTION WIDTH 14.6 % (11.7-14.4)
[2019-03-16 06:13] LABS: ANION GAP 11.4 mmol/L (8-16); BLOOD UREA NITROGEN 17 mg/dL (7-26); BUN/CREATININE RATIO 20 (6-25); CALCIUM 9.3 mg/dL (8.4-10.2); CARBON DIOXIDE 23 mmol/L (22-29); CHLORIDE 108 mmol/L (98-107); CREATININE, SERUM 0.87 mg/dL (0.57-1.11); EST GLOMERULAR FILTRATION RATE > 60 ML/MIN (60-); GLUCOSE 114 mg/dL (74-118); POTASSIUM 4.4 mmol/L (3.5-5.1); SODIUM 138 mmol/L (136-145)
--- NOTE | 2019-03-16 07:29 | NUR ---
Received bedside report from night nurse. Patient resting in bed, no signs of distress or c/o pain at this time. All safety measures in place. Will continue to monitor.
[2019-03-16] MEDS: LISINOPRIL 2.5 MG TAB PO SCH ×2 (09:00→09:39)
[2019-03-16] MEDS: VANCOMYCIN 750MG/NS 150ML IVPB 150 ML IV SCH (09:38)
[2019-03-16] MEDS: SPIRONOLACTONE 25 MG TAB PO SCH (09:38)
[2019-03-16] MEDS: SOTALOL HCL 80 MG TAB PO SCH ×2 (09:38→20:21)
[2019-03-16] MEDS: HYDROCODONE/APAP 5MG-325MG TAB PO PRN ×2 (09:39→15:08)
--- NOTE | 2019-03-16 18:52 | NUR ---
Bedside report given to night nurse. Patient resting in bed, no s/s of distress or c/o pain at this time. All safety measures in place.
[2019-03-16] MEDS: PAROXETINE HCL 20 MG TAB PO SCH (20:21)
[2019-03-17] VITALS (8 sets, daily range): BP systolic 113–154; BP diastolic 54–81
--- NOTE | 2019-03-17 07:00 | NUR ---
BEDSIDE SHIFT REPORT FROM SPLICER APPRENTICE RN. PT DENIES NEEDS AT THIS TIME.
[2019-03-17] MEDS: LISINOPRIL 2.5 MG TAB PO SCH (08:51)
[2019-03-17] MEDS: VANCOMYCIN 750MG/NS 150ML IVPB 150 ML IV SCH (08:51)
[2019-03-17] MEDS: SOTALOL HCL 80 MG TAB PO SCH ×2 (08:51→21:07)
[2019-03-17] MEDS: SPIRONOLACTONE 25 MG TAB PO SCH (08:51)
[2019-03-17] MEDS: PAROXETINE HCL 20 MG TAB PO SCH (21:07)
[2019-03-18 01:14] VITALS: BP 142/71
[2019-03-18 05:32] VITALS: BP 145/68
[2019-03-18 09:06] VITALS: BP 143/84
[2019-03-18] MEDS: VANCOMYCIN 750MG/NS 150ML IVPB 150 ML IV SCH (11:00)
[2019-03-18] MEDS: SPIRONOLACTONE 25 MG TAB PO SCH (11:01)
[2019-03-18] MEDS: LISINOPRIL 2.5 MG TAB PO SCH (11:02)
[2019-03-18] MEDS: SOTALOL HCL 80 MG TAB PO SCH (11:02)
[2019-03-18 11:24] VITALS: BP 143/84
[2019-03-18 12:27] VITALS: BP 161/97
--- NOTE | 2019-03-18 12:34 | NUR ---
IMM letter delivered and reminded pt of MCR rights. Pt verbalized understanding. Signed copy placed in chart. Copy to pt's transition of care folder.
[2019-03-18] MEDS ORDERED: LISINOPRIL 2.5 MG TAB PO SCH (13:00)
--- NOTE | 2019-03-18 16:00 | NUR ---
Spoke to Dr. Manley and received updated wound care order for home health. New order faxed to [facility]. Updated Erika Isma with [facility] of discharge for today. PATIENT ADDRESS WHERE SERVICE WILL BE RECEIVED: [address] [place] [id number] PATIENT CONTACT NUMBER: [phone] NAME OF HOME HEALTH COMPANY: [facility] TELEPHONE/FAX NUMBER OF COMPANY: [phone] / F [phone] ADDRESS OF [employer]: [address] [place] [address] SERVICES TO RECEIVE: SN, PT, OT ANTICIPATED DATE SERVICES WILL BEGIN: March 19, 2019 Please call the company above if you have not received a call to schedule a home visit within 24 hours of discharge.
[2019-03-18 16:25] VITALS: BP 161/95
--- NOTE | 2019-03-18 16:40 | NUR ---
Nutrition Screen Note RD Recommendation for Physician: -Continue current diet per MD. Plan of Care: RD following, monitoring for tolerance and adequacy. Nutrition reason for involvement: LOS Primary Diagnose(s):Abcess, cellulitis PMH: CHF, HTN, CAD Ht: 61 in Wt: 147 lb BMI: 27.8 kg/m2 IBW: [address] Assessment: 03/18: 79 YOF admitted for abscess, cellulitis with PMH listed above. Pt reported that she has a good appetite and has not had any recent weight loss. Pt denied N/V/D/chewing or swallowing issues, she did state she had some constipation issues-on milk of mg. Pt did state she has a mild allergy to pecans and cantaloupe-she reported she did not want this in her EMR but that she was okay to have this documented within HT-she stated she can self select from the menu. Pt accepted low Na nutrition handout. Chart reviewed. Labs and meds reviewed. Pending possible d/c. Will continue to monitor. Current Diet: cardiac Malnutrition Evaluation (03/18) The patient does not meet criteria for a specified degree of malnutrition at this time. Will re-evaluate at follow-up as appropriate. Diet Education Needs Assessment: Diet education indicated, pt accepted. Learner(s): pt Barriers: none Cultural/Language Modifications: none Readiness: acceptance Method: discussion, handout, teach back Topics: Low Na Handout Understanding/Compliance: verbalized understanding, anticipate good compliance Nutrition Care Level: low Signed: Ida Landry, RD, LD
[2019-03-18] MEDS ORDERED: WARFARIN SOD 3 MG TAB PO SCH (17:00)
--- NOTE | 2019-03-19 15:06 | Discharge Summary ---
See also history and physical. HOSPITAL COURSE: The patient was admitted with large very painful hematoma from trauma to the left foot. Described as a grapefruit sized. She was treated with analgesics. Warfarin was held. Database was obtained and monitored. The patient was assessed by her inspector coated fabrics as she has a history of congestive heart failure. ProTime fell to normal. The patient underwent debridement of the large hematoma surgically. The patient was seen by covering Medicine Service over the weekend of March 16 and . She was discharged on the and will be followed up by her surgeon, Dr. Isma Manley as well as her inspector coated fabrics, Dr. Londono. Arrangements were made for visiting home nurse per patient's request. Hypertension was labile and required elevation in mid regimen while here. The patient was counseled to increase her lisinopril dose to 5 mg upon discharge. She is to have ProTimes drawn by her home health nurse. LABORATORY STUDIES: Include serial chemistries. On March 12, creatinine 1.22. Creatinine 0.87 March 16. Nature of the peptide 129. INR 1.88 on March 12. 1.01 on March 15. Urinalysis clear. Chemistry as above. Hemoglobin on admission 11.9 with a low MCHC. Hemoglobin 11.2 on March 16. Cultures of the blood and wound were negative as was Gram stain. Chest x-ray March 12 with mild atelectasis and mild cardiomegaly. Minimal bilateral pulmonary venous congestion. Ankle x-ray soft tissue swelling marked dorsum forefoot. Foot MRI March 13 hematoma, dorsal foot soft tissue. Abscess may be a consideration per interpreting radiologist, Eddie Blackmon D.O. Postoperative course was satisfactory. We will follow up as above. FINAL IMPRESSION: Large hematoma described as grapefruit sized post trauma, left foot. Required surgical drainage and removal. Primary hypertension. Chronic left ventricular systolic congestive heart failure. Coronary artery disease with history of prior distant OR. Chronic depression and anxiety. Mild chronic anemia associated with chronic requirements for anticoagulants. Paroxysmal atrial fibrillation. See also medicine reconciliation list. Consultations. Outpatient records supplied. MD RACHAEL Bauer/JORGE /[id number]
== END 2019-03-18 17:34 | disposition home or self-care (01) | DRG 603 ==
LOC: MED/SURG2 15:50
PROVIDERS: ADMIT Internal Medicine; ATTEND Internal Medicine
PROC: 0H9NXZZ Drainage of Left Foot Skin, External Approach (ICD-10-PCS; principal; 2019-03-15 10:10)
DX: L03.116 Cellulitis of left lower limb (principal); I50.42 Chronic combined systolic (congestive) and diastolic (congestive) heart failure; L02.612 Cutaneous abscess of left foot; S90.32XA Contusion of left foot, initial encounter; I48.0 Paroxysmal atrial fibrillation; I11.0 Hypertensive heart disease with heart failure; X58.XXXA Exposure to other specified factors, initial encounter; M06.9 Rheumatoid arthritis, unspecified; Z86.718 Personal history of other venous thrombosis and embolism; Z79.01 Long term (current) use of anticoagulants; I25.10 Atherosclerotic heart disease of native coronary artery without angina pectoris; I73.9 Peripheral vascular disease, unspecified; F32.9 Major depressive disorder, single episode, unspecified
CPT/HCPCS: 36415; 71046; 80048; 80053; 80202; 81001; 83880; 85025; 85610; 87040; 87071; 87075; 87205; 93005; 96361; J1100; J2001; J2405; J2710; J3010; J3370; J7050

== ENCOUNTER → 2019-07-31 | Outpatient (CLI) | payer MEDICARE ==
[~2019-07-31] MED LIST changes: +ALDACTONE25 MG PO; +ALLEGRA-D 24 H1 EACH; +ATROVENT HFA12.9 GM; +BACTRIM DS TAB1 EACH PO; +REGADENOSON 0.4 MG/5 ML SYR IV ONE; +SOTALOL80 MG PO
--- NOTE | 2019-07-31 16:47 | Myoview Stress Test ---
DATE OF STUDY: 07/31/2019 11:08:00 Stress Test - Treadmill ONLY STUDY PERFORMED: Nuclear gated myocardial perfusion scan. Thank you, Dr. Isaac Wheeler for this nuclear medicine interpretation consultation. Nuclear gated myocardial perfusion scan performed as per protocol at [facility]. The stress test is supervised by Dr. Isaac Wheeler. I would interpret only the nuclear part of the stress test. Myoview injected 33 mCi for resting protocol and 10 mCi for stress protocol. LEXISCAN PROTOCOL: Lexiscan injected 0.4 mg intravenous stress agent. IMPRESSION: 1. Normal gated myocardial perfusion scan. No evidence of ischemia or scar noted. Left ventricular ejection fraction is 50%. 2. Normal study. MD KAVITA Bauer/MODL /[id number]
== END ==
LOC: NM 10:48
PROVIDERS: ATTEND Internal Medicine Cardiovascular Disease
DX: I20.8 Other forms of angina pectoris (principal)
CPT/HCPCS: 78452; 93017; A9502; J2785

== ENCOUNTER → 2019-12-26 | Outpatient (CLI) | payer MEDICARE ==
[~2019-12-26] MED LIST changes: -REGADENOSON 0.4 MG/5 ML SYR IV ONE
== END ==
LOC: RAD 14:36
PROVIDERS: ATTEND Internal Medicine Cardiovascular Disease
DX: R22.43 Localized swelling, mass and lump, lower limb, bilateral (principal); I82.403 Acute embolism and thrombosis of unspecified deep veins of lower extremity, bilateral; M79.605 Pain in left leg
CPT/HCPCS: 93970

== ENCOUNTER → 2020-01-03 | Outpatient (CLI) | payer MEDICARE ==
--- NOTE | 2020-01-03 14:06 | Diagnostic Imaging Report ---
MRI of the left tibia/fibula without contrast. MRI of the left femur without contrast. History: Contusion. Fall. Soft tissue injury. Leg pain. Technique: Multiplanar multisequence MRI of the left tibia/fibula without contrast. Multiplanar multisequence MRI of the left femur without contrast. Comparison: None Findings: MRI left tibia/fibula: Metallic artifact in the knee obscures fine detail of the region. 9.2 x 3.3 x 4.3 cm heterogeneous signal intensity mass intimately associated with the posterior medial musculature just below the knee joint and the proximal medial posterior calf. This is best seen on series 2 image 7 axial, series 4 image 9 coronal and series 6 image 15 sagittal. This is most consistent with an evolving intramuscular hematoma or possibly a partially ruptured Dennis's cyst. There is mild adjacent soft tissue edema. Follow-up MRI is recommended to document resolution. Diffuse muscle atrophy. No ligamentous or tendon tear. The visualized neurovascular bundles are intact. MRI left femur: No acute fracture, subluxation or avascular necrosis about the left femur. Metallic hardware about the knee obscures fine detail of the region. Diffuse muscle atrophy. No ligamentous or tendon tear. The visualized neurovascular bundles are intact. Impression: 9.2 x 3.3 x 4.3 cm heterogeneous signal intensity mass intimately associated with the posterior medial musculature just below the knee joint and the proximal medial posterior calf. This is best seen on series 2 image 7 axial, series 4 image 9 coronal and series 6 image 15 sagittal. This is most consistent with an evolving intramuscular hematoma or possibly a partially ruptured Dennis's cyst. There is mild adjacent soft tissue edema. Follow-up MRI is recommended to document resolution. Signed by: Dr. Clint Mcclelland M.D. on 01/03/2020 2:02 PM
== END ==
LOC: MRI 10:53
PROVIDERS: ATTEND Internal Medicine Cardiovascular Disease
DX: I77.89 Other specified disorders of arteries and arterioles (principal); S80.12XA Contusion of left lower leg, initial encounter

== ENCOUNTER → 2020-10-23 | Outpatient (CLI) | payer MEDICARE ==
[~2020-10-23] MED LIST changes: -ALLEGRA-D 24 H1 EACH; +ALLEGRA-D 24 H1 EACH PO; +ATORVASTATIN CA20 MG PO; +HYDROCHLOROTHIA25 MG PO; +HYDROCODON-ACE1 EA11 PO; +MECLIZINE HCL12.5 MG PO; +PAROXETINE HCL20 MG PO
== END ==
LOC: CARD 14:10
PROVIDERS: ATTEND Internal Medicine Cardiovascular Disease
DX: I73.9 Peripheral vascular disease, unspecified (principal); I74.4 Embolism and thrombosis of arteries of extremities, unspecified
CPT/HCPCS: 93925; U0002

== ENCOUNTER 2020-10-28 12:07 | Observation (INO) | payer MEDICARE ==
[2020-10-23 14:50] LABS: BASOPHILS % 0.4 % (0.0-1.0); EOSINOPHILS # (AUTO) 0.1 (0.0-0.4); EOSINOPHILS % 1.9 % (0.0-6.0); HEMATOCRIT 37.4 % (34.2-44.1); HEMOGLOBIN 11.7 g/dL (12.0-16.0); LYMPHOCYTES # (AUTO) 1.7 (1.0-3.2); LYMPHOCYTES % 22.1 % (18.0-39.1); MEAN CORPUSCULAR HEMOGLOBIN 30.8 pg (28-32); MEAN CORPUSCULAR HGB CONC 31.3 g/dL (31-35); MEAN CORPUSCULAR VOLUME 98.4 fL (81-99); MONOCYTES # (AUTO) 0.6 (0.2-0.8); MONOCYTES % 8.3 % (4.4-11.3); NEUTROPHILS # (AUTO) 5.1 (2.1-6.9); NEUTROPHILS % 67.2 % (38.7-80.0); PLATELET COUNT 130 x10e3/uL (140-360)
[2020-10-23 15:12] LABS: ALBUMIN 3.2 g/dL (3.5-5.0); ALBUMIN/GLOBULIN RATIO 0.8 (0.8-2.0); ANION GAP 11.9 mmol/L (8-16); CALCIUM 9.2 mg/dL (8.4-10.2); CREATININE, SERUM 1.07 mg/dL (0.57-1.11); POTASSIUM 3.9 mmol/L (3.5-5.1)
[2020-10-23 15:15] LABS: INR 2.22; PROTHROMBIN TIME 25.4 seconds (11.9-14.5)
[~2020-10-28] VITALS: Ht 152.4 cm; Wt 67.1 kg
[2020-10-28] VITALS (12 sets, daily range): BP systolic 117–136; BP diastolic 66–86
[~2020-10-28 12:07] MED LIST changes: -ATORVASTATIN CA20 MG PO; -HYDROCHLOROTHIA25 MG PO; -HYDROCODON-ACE1 EA11 PO; -MECLIZINE HCL12.5 MG PO; -PAROXETINE HCL20 MG PO
[2020-10-28] MEDS ORDERED: LIDOCAINE HCL 2% LOCAL 20 ML VIAL ONE ×2 (12:42→14:15)
[2020-10-28] MEDS ORDERED: FENTANYL CITRATE/PF 100MCG/2 ML INJ ONE (12:42)
[2020-10-28] MEDS ORDERED: MIDAZOLAM HCL 2 MG/2 ML VIAL ONE (12:42)
[2020-10-28] MEDS ORDERED: IOPAMIDOL 370 MG/ML 200 ML INFUS..BTL INJ ONE ×2 (12:42→14:47)
[2020-10-28] MEDS ORDERED: HEPARIN SOD/SOD CHLORIDE 2,000 ML ONE (12:42)
[2020-10-28] MEDS ORDERED: ATORVASTATIN CA20 MG PO (12:43)
[2020-10-28] MEDS ORDERED: MECLIZINE HCL12.5 MG PO (12:43)
[2020-10-28] MEDS ORDERED: HYDROCHLOROTHIA25 MG PO (12:43)
[2020-10-28] MEDS ORDERED: SODIUM CHLORIDE 0.9% 1000ML 1,000 ML ONE (12:43)
[2020-10-28] MEDS ORDERED: WARFARIN SODIUM5 MG PO (12:43)
[2020-10-28] MEDS ORDERED: PAROXETINE HCL20 MG PO (13:05)
[2020-10-28] MEDS ORDERED: HYDROCODON-ACE1 EA11 PO (13:05)
[2020-10-28] MEDS ORDERED: METHYLPREDNISOLONE SOD SUCC 125 MG/2ML VIAL ONE (13:08)
[2020-10-28] MEDS ORDERED: DIPHENHYDRAMINE HCL INJ 50 MG/ML VIAL ONE (13:08)
[2020-10-28] MEDS ORDERED: FAMOTIDINE 20 MG/2 ML VIAL IV ONE (13:09)
[2020-10-28] MEDS ORDERED: HYDRALAZINE HCL 20 MG/ML VIAL ONE (14:46)
[2020-10-28] MEDS ORDERED: HYDROCODONE/APAP 5MG-325MG TAB PO PRN (15:30)
[2020-10-28] MEDS: DEXTROSE 5%/0.45% SOD CHL 1,000 ML IV SCH ×2 (17:31→17:33)
[2020-10-29 00:50] VITALS: BP 116/60
[2020-10-29 04:44] VITALS: BP 106/64
[2020-10-29 05:03] LABS: INR 0.99; PROTHROMBIN TIME 13.7 seconds (11.9-14.5)
[2020-10-29 05:08] LABS: CALCIUM 9.2 mg/dL (8.4-10.2); CHOL/HDL RATIO 2.7 (3.0-3.6); CREATININE, SERUM 1.23 mg/dL (0.57-1.11)
[2020-10-29] MEDS: DEXTROSE 5%/0.45% SOD CHL 1,000 ML IV SCH (06:41)
[2020-10-29 07:47] VITALS: BP 106/64
[2020-10-29 08:11] VITALS: BP 120/64
[2020-10-29 08:20] VITALS: BP 120/64
[2020-10-29 08:21] VITALS: BP 120/64
== END 2020-10-29 11:53 | disposition home or self-care (01) ==
LOC: CATH LAB 12:07 → CATH LAB V 15:27 → MED/SURG 16:03
PROVIDERS: ADMIT Internal Medicine Cardiovascular Disease; ATTEND Internal Medicine Cardiovascular Disease
DX: I25.750 Atherosclerosis of native coronary artery of transplanted heart with unstable angina (principal); I11.0 Hypertensive heart disease with heart failure; I50.9 Heart failure, unspecified; I21.9 Acute myocardial infarction, unspecified; Z86.718 Personal history of other venous thrombosis and embolism; Z79.01 Long term (current) use of anticoagulants; Z95.820 Peripheral vascular angioplasty status with implants and grafts
CPT/HCPCS: 36415 ×2; 80048; 80053; 80061; 82550; 83880; 85025; 85610 ×2; 93458; C1887; G0378 ×2; J0360; J1200; J2001; J2930; J7030; Q9967; 99152; 99153; J2250; J3010